=== PATIENT | female | born 1950 | race Caucasian/White ===

== ENCOUNTER 2018-12-07 08:12 | Outpatient (REF) | payer MEDICARE, OTHER, SELFPAY ==
[2018-12-07 12:34] LABS: ALT 19 U/L (12-78); AST 13 U/L (15-37); Albumin 4.1 g/dL (3.4-5.0); Alkaline Phosphatase 75 U/L (46-116); Anion Gap 8.8 mmol/L (3-11); BUN 28 mg/dL (7-18); Bilirubin, Total 0.4 mg/dL (0.2-1.0); CO2 29.2 mmol/L (21.0-32.0); CREATININE 1.16 mg/dL (0.55-1.02); Calcium 10.3 mg/dL (8.5-10.1); Chloride 101 mmol/L (98-107); Cholesterol 257 mg/dL (50-200); Estimated GFR 46.19 (mL/min/1.73m2); Glucose 88 mg/dL (70-100); HDL Cholesterol 74 mg/dL (40-60); LDL CHOLESTEROL 160 mg/dL (<100); Potassium 4.3 mmol/L (3.5-5.1); Sodium 139 mmol/L (136-145); Total Protein 7.2 g/dL (6.4-8.2); Triglyceride 88 mg/dL (30-150)
== END 2018-12-07 08:32 ==
LOC: NCHCN 08:12
PROVIDERS: PCP Nurse Practitioner; Visit Provider Nurse Practitioner
DX: E78.5 Hyperlipidemia, unspecified (principal); I10 Essential (primary) hypertension
CPT/HCPCS: 80053; 80061; 83721

== ENCOUNTER 2019-11-15 01:52 | Outpatient (CLI) | payer MEDICARE, OTHER, SELFPAY ==
--- NOTE | 2019-11-15 | DI.MAMMO_ITS ---
EXAM: MG MAMMO SCREENING CLINICAL HISTORY: SCREENING, Z12.39 TECHNIQUE: Bilateral full field digital CC and MLO mammographic images were obtained with 3D tomosyn thesis and utilizing computer aided detection (CAD). COMPARISON: Available for comparison. FINDINGS: Masses/Architectural Distortion: None seen. Microcalcifications: No suspicious pleomorphic-type are seen. Skin Thickening/Nipple Retraction: None. IMPRESSION: 1. No significant interval change with no specific features of malignancy noted. 2. Unless there is more urgent need, screening mammography is recommended, as per [employer] guidelines. BI-RADS Cat 1 - Negative Breast Density - Category D - Extremely dense The mammogram demonstrates the patient's breast tissue is dense. Dense breast tissue is very common a nd is not abnormal but dense breast tissue can make it harder to find cancer on a mammogram. Also, de nse breast tissue may increase their breast cancer risk. This information about the result of the [facility] mogram report was provided to the patient to raise their awareness. Use this report when you speak wi th the patient about their risks for breast cancer, which includes their family history. At that time , you may recommend for more screening tests (Ultrasound or MRI) as they might be useful based on the ir risk. A negative radiographic report should not delay biopsy if a dominant or clinically suspicious mass is present. Up to ten percent of cancers are not identified on mammography. A negative report may reinforce clinical impression. Adenosis and dense breasts may obscure an underlying neoplasm. False positive reports average 6 to 10%. Patient will receive a letter notifying them of these results.
== END 2019-11-15 02:12 ==
PROVIDERS: PCP Nurse Practitioner; Visit Provider Nurse Practitioner
DX: Z12.31 Encounter for screening mammogram for malignant neoplasm of breast (principal)
CPT/HCPCS: 77063; 77067

== ENCOUNTER 2020-02-28 08:32 | Outpatient (REF) | payer MEDICARE, OTHER, SELFPAY ==
[2020-02-28 18:56] LABS: ALT 21 U/L (14-59); AST 14 U/L (15-37); Albumin 4.2 g/dL (3.4-5.0); Alkaline Phosphatase 81 U/L (46-116); Anion Gap 10.3 mmol/L (3-11); BUN 24 mg/dL (7-18); Bilirubin, Total 0.2 mg/dL (0.2-1.0); CO2 25.7 mmol/L (21.0-32.0); CREATININE 1.16 mg/dL (0.55-1.02); Calculated LDL 82 mg/dL (<100); Chloride 101 mmol/L (98-107); Cholesterol 173 mg/dL (<200); Estimated GFR 46.05 (mL/min/1.73m2); Glucose 98 mg/dL (74-106); HDL Cholesterol 64 mg/dL (40-60); Potassium 4.6 mmol/L (3.5-5.1); Sodium 137 mmol/L (136-145); Triglyceride 135 mg/dL (<150)
[2020-02-28 19:14] LABS: ESR 19 mm/hr (0-30)
[2020-02-28 19:18] LABS: C-Reactive Protein 0.58 mg/dL (0.0-0.3); Creatine Kinase 60 U/L (26-192)
[2020-02-29 17:02] LABS: Rheumatoid Factor <8.6 IU/mL (<12.0)
[2020-03-01 15:24] LABS: ANA Interpretation Negative (Negative)
== END 2020-02-28 08:52 ==
LOC: NCHCN 08:32
PROVIDERS: PCP Nurse Practitioner; Visit Provider Nurse Practitioner
DX: I10 Essential (primary) hypertension (principal); M12.849 Other specific arthropathies, not elsewhere classified, unspecified hand; E78.5 Hyperlipidemia, unspecified
CPT/HCPCS: 80053; 80061; 82550; 85652; 86038; 86140; 86431

== ENCOUNTER 2020-04-11 02:06 | Outpatient (CLI) | payer MEDICARE, OTHER, SELFPAY ==
--- NOTE | 2020-04-11 10:10 | DI.RAD_ITS ---
EXAM: XR ARTHRITIS SERIES CLINICAL HISTORY: HAND DEFORMITY, PAIN,ARTHRITIS, M19.049,ELEVATED C REACTIVE PROTEIN,R79.82,. TECHNIQUE: 2D digital imaging was performed. COMPARISON: No exams were available for comparison FINDINGS: Erosive changes and proliferative changes are seen at the interphalangeal joints of both hands. Ther e is joint space narrowing seen in the interphalangeal joints and 2nd and 3rd metacarpophalangeal lauren nts. Mild spurring is seen at the 2nd and 3rd metacarpophalangeal joints. Mild hypertrophic changes are seen at the 1st CMC joints bilaterally. No soft tissue calcifications, lytic or sclerotic lesio ns are seen. IMPRESSION: Findings suggestive of erosive osteoarthritis. DATA REPOSITORY: RADIATION DOSE DELIVERED:
== END 2020-04-11 02:26 ==
PROVIDERS: PCP Nurse Practitioner; Visit Provider Nurse Practitioner Family
DX: M18.9 Osteoarthritis of first carpometacarpal joint, unspecified (principal); M77.8 Other enthesopathies, not elsewhere classified; M19.042 Primary osteoarthritis, left hand; M19.041 Primary osteoarthritis, right hand; R79.82 Elevated C-reactive protein (CRP)
CPT/HCPCS: 36415; 86200; 73120; 84550; 85025

== ENCOUNTER 2020-04-11 02:40 | Outpatient (CLI) | payer MEDICARE, OTHER, SELFPAY ==
[2020-04-11 10:43] LABS: Abs Immature Grans 0.06 10^3/uL (0.0-0.06); Absolute Basophil Count 0.06 10^3/uL (0.0-0.2); Absolute Eosinophil Count 0.35 10^3/uL (0.0-0.7); Absolute Lymphocyte Count 2.48 10^3/uL (1.2-3.4); Basophils % 0.5; Eosinophils % 2.7; HCT 39.6 % (36.0-46.0); HGB 12.4 g/dL (11.2-15.7); Immature Grans % 0.5; Lymphocytes % 19.2; MCH 30.8 pg (27.0-33.0); MCHC 31.3 % (32.0-36.0); MCV 98.3 fL (80-95); MPV 9.9 fL (8.0-11.0); Monocytes % 6.3; Neutrophils % 70.8; Nucleated RBC 0 %; Platelet Count 443 10^3/uL (130-400); RBC 4.03 10^6/uL (3.93-5.22); RDW 13.1 % (11.7-14.6); RDW-SD 47.4 fL; WBC 12.94 10^3/uL (4.4-10.8)
[2020-04-11 10:45] LABS: Absolute Monocyte Count 0.82 10^3/uL (0.1-0.8); Absolute Neutrophil Count 9.16 10^3/uL (1.2-6.7)
[2020-04-11 11:22] LABS: Uric Acid 5.2 mg/dL (2.6-6.0)
[2020-04-12 09:46] LABS: Cyclic Citrullinated Peptide <2.5 U/mL (<5.0)
== END 2020-04-11 03:00 ==
PROVIDERS: PCP Nurse Practitioner; Visit Provider Nurse Practitioner Family
DX: M19.041 Primary osteoarthritis, right hand (principal); M19.042 Primary osteoarthritis, left hand; R79.82 Elevated C-reactive protein (CRP)
CPT/HCPCS: 36415; 86200; 84550; 85025

== ENCOUNTER 2020-11-21 02:36 | Outpatient (CLI) | payer MEDICARE, SELFPAY ==
--- NOTE | 2020-11-21 07:35 | DI.MAMMO_ITS ---
EXAM: MAMMO SCREENING CLINICAL HISTORY: SCREENING, Z12.39. TECHNIQUE: Bilateral full field digital CC and MLO mammographic images were obtained with 3D tomosyn thesis and utilizing computer aided detection (CAD). COMPARISON: Prior mammograms dating back to 2010, the most recent being October 2019. FINDINGS: The fibroglandular tissue is again noted to be dense, this decreasing the sensitivity mammogram for f inding in underlying lesions. There are no new spiculated masses nor malignant appearing microcalcification groups. Benign-appearing microcalcification group medially in the left breast is unchanged. There is no significant architectural distortion nor skin thickening-retraction. IMPRESSION: Dense bilateral fibroglandular tissue. Stable benign findings. No obvious radiographic evidence of malignancy. BI-RADS Category 2 - Benign Findings Breast Density - Category D - Extremely dense Breast density Category C or D implies that the patient has dense breast tissue. Dense breast tissue can make it harder to find cancer on a mammogram. Dense breast tissue is also associated with an incr eased risk of breast cancer. This information about the result of the mammogram report was provided to the patient to raise their awareness. Use this report when you speak with the patient about their risks for breast cancer, which includes their family history. At that time, you may recommend additional screening tests (Ultrasoun d or MRI) as these tests may add significant information. A negative radiographic report should not delay biopsy if a dominant or clinically suspicious mass is present. Up to ten percent of cancers are not identified on mammography. A negative report may reinforce clinical impression. Adenosis and dense breasts may obscure an underlying neoplasm. False positive reports average 6 to 10%. Patient will receive a letter notifying them of these results.
== END 2020-11-21 02:56 ==
PROVIDERS: PCP Nurse Practitioner; Visit Provider Nurse Practitioner
DX: Z12.31 Encounter for screening mammogram for malignant neoplasm of breast (principal)
CPT/HCPCS: 77063; 77067

== ENCOUNTER 2021-06-28 00:45 | Outpatient (CLI) | payer MEDICARE, SELFPAY ==
--- NOTE | 2021-06-28 10:45 | DI.MRI_ITS ---
Exam(s) MR LUMBAR SPINE WO EXAM: MR LUMBAR SPINE WO CLINICAL HISTORY: LUMBAR BACK PAIN WITH RADICULOPATHY,M54.16. TECHNIQUE: Multiplanar multisequence MRI was performed. COMPARISON: No exams were available for comparison FINDINGS: MR examination of the lumbosacral spine was performed according to the usual protocol. No significant bony signal abnormality seen. There is a moderate left convex lumbar scoliosis. The SI joints are fairly well maintained. There are facet hypertrophic changes at multiple levels throughout the lumbar region. The conus medullaris appears intact. There is an apparent prominent disc bulge at the T10-T11 level seen on the sagittal images, no axial images were obtained at this level. No gross spinal stenosis o n the basis of the sagittal images. No significant findings at T11-T12 or T12-L1. No disc herniation, central canal spinal stenosis, or neural foraminal stenosis at these levels. At the L1-2 level, there is a slight retrolisthesis of L1 on L2. There is no evidence of a disc karina iation, central canal spinal stenosis, or neural foraminal stenosis at this level. At L 2 3, there is a prominent disc bulge. There is narrowing of the right lateral recess and right neural foramen. No central canal spinal stenosis. No disc herniation. At L3-4, there is a moderate disc bulge. There is narrowing of both lateral recesses. There is prob able mild bilateral neural foraminal narrowing. There is no significant central canal spinal stenosi s. At L4-5, there is a moderate disc bulge with question slight cysts superimposed central disc herniati on. There is mild narrowing of the spinal canal in the lateral dimension secondary to facet hypertro phy. There is no definite central canal spinal stenosis. There is mild bilateral neural foraminal s tenosis. At L5-S1, there is narrowing of the left lateral recess and narrowing of the left neural foramen. No central canal spinal stenosis or disc herniation. IMPRESSION: Multilevel degenerative changes as described above with marked facet hypertrophy at multiple levels. The neural foramina and lateral recesses of the spinal canal are narrowed at multiple levels. Pleas e see above discussion for findings at individual levels. DATA REPOSITORY:
== END 2021-06-28 01:05 ==
PROVIDERS: PCP Nurse Practitioner; Visit Provider Nurse Practitioner
DX: M43.16 Spondylolisthesis, lumbar region; M51.26 Other intervertebral disc displacement, lumbar region
CPT/HCPCS: 72148

== ENCOUNTER 2021-10-28 02:59 | Outpatient (CLI) | payer MEDICARE, SELFPAY ==
[2021-10-28 12:44] LABS: ALT 20 U/L (14-59); AST 17 U/L (15-37); Albumin 4.1 g/dL (3.4-5.0); Alkaline Phosphatase 84 U/L (46-116); Anion Gap 5.1 mmol/L (3-11); BUN 28 mg/dL (7-18); Bilirubin, Total 0.3 mg/dL (0.2-1.0); CO2 27.9 mmol/L (21.0-32.0); CREATININE 1.2 mg/dL (0.55-1.02); Calcium 10.3 mg/dL (8.5-10.1); Chloride 101 mmol/L (98-107); Estimated GFR 44.04 (mL/min/1.73m2); Glucose 73 mg/dL (74-106); Potassium 5.8 mmol/L (3.5-5.1); Sodium 134 mmol/L (136-145); Total Protein 6.9 g/dL (6.4-8.2)
== END 2021-10-28 03:00 | disposition home or self-care (01) ==
LOC: LBO 02:59
PROVIDERS: PCP Nurse Practitioner; Visit Provider Nurse Practitioner Family
DX: M54.16 Radiculopathy, lumbar region (principal); Z79.1 Long term (current) use of non-steroidal anti-inflammatories (NSAID)
CPT/HCPCS: 36415; 80053

== ENCOUNTER 2021-12-10 09:07 | Outpatient (REF) | payer MEDICARE, SELFPAY ==
[2021-12-10 16:48] LABS: HCT 39.8 % (36.0-46.0); HGB 12.1 g/dL (11.2-15.7); MCH 30.3 pg (27.0-33.0); MCHC 30.4 % (32.0-36.0); MCV 99.5 fL (80-95); MPV 10.6 fL (8.0-11.0); Platelet Count 446 10^3/uL (130-400); RDW 13.4 % (11.7-14.6); RDW-SD 49.1 fL; WBC 12.23 10^3/uL (4.4-10.8)
[2021-12-10 17:25] LABS: Anion Gap 8.9 mmol/L (3-11); BUN 25 mg/dL (7-18); CO2 25.1 mmol/L (21.0-32.0); CREATININE 1.1 mg/dL (0.55-1.02); Calcium 9.6 mg/dL (8.5-10.1); Calculated LDL 51 mg/dL (<100); Chloride 105 mmol/L (98-107); Cholesterol 153 mg/dL (<200); Estimated GFR 48.69 (mL/min/1.73m2); Glucose 104 mg/dL (74-106); HDL Cholesterol 80 mg/dL (40-60); Potassium 5.7 mmol/L (3.5-5.1); Sodium 139 mmol/L (136-145); Triglyceride 113 mg/dL (<150)
== END 2021-12-10 09:08 | disposition home or self-care (01) ==
LOC: NCHCN 09:07
PROVIDERS: PCP Nurse Practitioner Family; Visit Provider Nurse Practitioner Family
DX: I10 Essential (primary) hypertension (principal); E78.5 Hyperlipidemia, unspecified; R53.83 Other fatigue
CPT/HCPCS: 80048; 80061; 85027

== ENCOUNTER → 2021-12-11 01:59 | Outpatient (CLI) | payer MEDICARE, SELFPAY ==
--- NOTE | 2021-12-11 | DI.MAMMO_ITS ---
Exam(s) MAMMO SCREENING EXAM: MAMMO SCREENING CLINICAL HISTORY: SCREENING, Z12.39. TECHNIQUE: Bilateral full field digital CC and MLO mammographic images were obtained with 3D tomosyn thesis and utilizing computer aided detection (CAD). COMPARISON: 2012 through 2020 FINDINGS: Masses/Architectural Distortion: None seen. Microcalcifications: No suspicious pleomorphic-type are seen. Coarse, benign calcifications medial l eft breast. Vascular calcifications. Skin Thickening/Nipple Retraction: None. IMPRESSION: 1. No significant interval change with no specific features of malignancy noted. 2. Unless there is more urgent need, annual screening mammography is recommended, as per [employer] guidelines. BI-RADS Cat 2 - Benign Findings Breast Density - Category D - extremely dense Breast Density Category D: The mammogram demonstrates the patient's breast tissue is dense. Dense madiha ast tissue is very common and is not abnormal but dense breast tissue can make it harder to find canc er on a mammogram. Also, dense breast tissue may increase their breast cancer risk. This information about the result of the mammogram report was provided to the patient to raise their awareness. Use th is report when you speak with the patient about their risks for breast cancer, which includes their f amily history. At that time, you may recommend for more screening tests (Ultrasound or MRI) as they m ight be useful based on their risk. A negative radiographic report should not delay biopsy if a dominant or clinically suspicious mass is present. Up to ten percent of cancers are not identified on mammography. A negative report may reinforce clinical impression. Adenosis and dense breasts may obscure an underlying neoplasm. False positive reports average 6 to 10%.
== END ==
PROVIDERS: PCP Nurse Practitioner Family; Visit Provider Nurse Practitioner Family
DX: Z12.31 Encounter for screening mammogram for malignant neoplasm of breast (principal)
CPT/HCPCS: 77063; 77067

== ENCOUNTER 2022-02-24 03:36 | Outpatient (CLI) | payer MEDICARE, SELFPAY ==
[2022-02-24 13:44] LABS: Abs Immature Grans 0.03 10^3/uL (0.0-0.06); Absolute Basophil Count 0.07 10^3/uL (0.0-0.2); Absolute Eosinophil Count 0.41 10^3/uL (0.0-0.7); Absolute Lymphocyte Count 2.72 10^3/uL (1.2-3.4); Absolute Monocyte Count 1.13 10^3/uL (0.1-0.8); Absolute Neutrophil Count 5.67 10^3/uL (1.2-6.7); Basophils % 0.7; Eosinophils % 4.1; HCT 36.9 % (36.0-46.0); HGB 11.6 g/dL (11.2-15.7); Immature Grans % 0.3; Lymphocytes % 27.1; MCH 30.3 pg (27.0-33.0); MCHC 31.4 % (32.0-36.0); MCV 96 fL (80-95); MPV 9.5 fL (8.0-11.0); Monocytes % 11.3; Neutrophils % 56.5; Platelet Count 395 10^3/uL (130-400); RBC 3.83 10^6/uL (3.93-5.22); RDW 13.9 % (11.7-14.6); RDW-SD 49.2 fL; WBC 10.03 10^3/uL (4.4-10.8)
[2022-02-24 14:36] LABS: ALT 19 U/L (14-59); AST 16 U/L (15-37); Albumin 3.8 g/dL (3.4-5.0); Alkaline Phosphatase 79 U/L (46-116); Anion Gap 8.6 mmol/L (3-11); BUN 27 mg/dL (7-18); Bilirubin, Total 0.2 mg/dL (0.2-1.0); C-Reactive Protein 1.12 mg/dL (0.0-0.3); CO2 25.4 mmol/L (21.0-32.0); CREATININE 1.6 mg/dL (0.55-1.02); Calcium 9.4 mg/dL (8.5-10.1); Chloride 104 mmol/L (98-107); Glucose 134 mg/dL (74-106); Potassium 5.5 mmol/L (3.5-5.1); Sodium 138 mmol/L (136-145); Total Protein 6.9 g/dL (6.4-8.2)
== END 2022-02-24 03:37 | disposition home or self-care (01) ==
LOC: LBO 03:36
PROVIDERS: PCP Nurse Practitioner Family; Visit Provider Nurse Practitioner Family
DX: L40.9 Psoriasis, unspecified (principal); M15.4 Erosive (osteo)arthritis; Z79.899 Other long term (current) drug therapy
CPT/HCPCS: 36415; 80053; 85025; 86140

== ENCOUNTER 2022-03-17 02:30 | Outpatient (CLI) | payer MEDICARE, SELFPAY ==
--- OUTSIDE RECORDS SUMMARY | 2022-03-17 02:32 | XMS_ITS | Encounter Summary ---
:1950 Author Organization [facility] [place] [address] Care Team Providers Name Role Phone Crysatl Jones MD Primary Care Provider Reason for Referral Diagnostic Test (Routine) - Closed Specialty Diagnoses / Procedures Referred By Contact Refer red To Contact Radiology Diagnoses FHx: colon cancer Hillary Barroso [facility] Rad [facility] Scan Procedures CT Colonography DX, Incl Img Pst Process, wo Contrast [address] [id number] Referral ID Status Reason Start Date Expiration Date Visits V isits Requested Authorized [id number] Closed Specialty 09/08/2016 08/18/2017 1 1 Service Requested Reason for Visit Diagnostic Test (Routine) - Closed Specialty Diagnoses / Procedures Referred By Contact Refer red To Contact Radiology Diagnoses FHx: colon cancer Hillary Barroso [facility] Rad Ct Scan Procedures CT Colonography DX, Incl Img Pst Process, wo Contrast [address] [id number] Referral ID Status Reason Start Date Expiration Date Visits V isits Requested Authorized [id number] Closed Specialty 09/08/2016 08/18/2017 1 1 Service Requested Encounter Details Date Type Department Care Team Description 09/10/[address] Scan at [facility] Barroso, FHx: colon cancer [facility] [place] [phone] [address] [place] [address] Social History Tobacco Use Types Packs/Day Years Used Date Never Assessed Sex Assigned at Date Recorded Not on file documented as of this encounter Plan of Treatment Not on filedocumented as of this encounter Procedures Procedure Name Priority Date/Time Associated Diagnosis Comme nts CT COLONOGRAPHY, Routine 09/10/2016 2:35 PM FHx: colon cancer Results for this DX, INCL IMG PST EST procedure a re in PROCESS, WO the results CONTRAST section. documented in this encounter Results (ABNORMAL) CT Colonography DX, Incl Img Pst Process, wo Contrast (09/10/2016 2:35 PM EST) Anatomical Region Laterality Modality Pelvis, Abdomen Computed Tomography Specimen (Source) Anatomical Location Collection Method / Collectio n Time Received Time / Laterality Volume Impressions 09/10/2016 3:48 PM EST 1. C-Rads category CO: Inadequate study. Streak artifact from hip arthroplasties obscure much of the rectum and the entir e sigmoid colon. There is failure to distend multiple segments of the colon d ue to a patent ileocecal valve with free reflux of CO2 throughout the small bowel and retrograde into the stomach. -Inadequate prep: Cannot exclude lesions greater than or equal to 10 mm owing to presence -Inadequate insufflation: One or more co lonic segments collapsed in both views -Awaiting prior colon studies for compar rob 2. Unexpected finding of a 44 mm left ov eloy mass/enlargement. This should be further assessed with ultrasonography. Narrative 09/10/2016 3:48 PM EST EXAMINATION: CT COLONOGRAPHY DX, INCL IMG PST PROCESS, WO CONTRAST CLINICAL HISTORY: Family hx of colon CA, Failed colonoscopy (report attached) TECHNIQUE: Prior to the procedure the pa tient underwent a standard colon preparation with stool tagging. The bal ent was scanned supine and prone following insufflation of carbon dioxide per rectum. Images were reviewed in 2-D and 3-D mode. 3-D image processing with creation of 3-D virtual fly-through was performed on an independent workstation. Bowel preparation: Minor fecal residue Degree of colonic distention: Multiple s egments are not well distended on supine view. There is free reflux through the i leocecal valve, and the entire small bowel in the stomach become markedly dis tended following insufflation of CO2. This Limited ability to achieve good col onic distention. Overall distention is better on prone view. COMPARISON: None FINDINGS: This is a nondiagnostic study for much o f the colon. The entire sigmoid colon is not assessed due to extensive streak art ifact from hip arthroplasties. The portions of the sigmoid colon which are seen are not well distended. Innumerable sigmoid colonic diverticuli are noted. N o definite polyp is identified however the entire colon was not adequately eval uated on both prone and supine images. Incidental findings include: There is a 44 x 28 x 28 mm left ovarian enlargement/mass which measures soft tis bharath density. Please note, the examination was perform ed with low-dose technique which limits evaluation of the extracolonic abdomen a nd pelvis. Resulting Agency Comment Unexpected Finding Hillary Alberto MD IMG CT ORDERABLES documented in this encounter Visit Diagnoses Diagnosis FHx: colon cancer Family history of malignant neoplasm of gastrointestinal tract documented in this encounter Administered Medications Inactive Administered Medications - up to 3 most recent administrations Medication Order MAR Action Action Date Dose Rate Site glucagon (human recombinant) Given 09/10/2016 2:15 PM EST 1 mg Left Gluteal injection 1 mg 1 mg, Intramuscular, ONCE, On Thu09/10/16 at 1415, 1 dose documented in this encounter Care Teams Automatic [employer]k Screen Printer Relationship Specialty Start Date End Date Crystal Jones MD PCP - General Family Medicine 09/10/16 07/20/21 [address] [place] [address] documented as of this encounter
--- OUTSIDE RECORDS SUMMARY | 2022-03-17 02:32 | XMS_ITS | Encounter Summary ---
:1950 Author Organization [facility] Address [address] [place] [address] Care Team Providers Name Role Phone Nataliia Romo NP Primary Care Provider Reason for Visit Reason Comments Follow-up Things have been going well Encounter Details Date Type Department Care Team Description 04/23/2020 Office Visit [facility] - Bora Arauz is (Primary Dx); [facility] Rheumatology JUAN Saleh Erosive osteoarthritis of multiple sites ; [address] [facility] [place] [address] [address] [place] [id number] Social History Tobacco Use Types Packs/Day Years Used Date Never Smoker Smokeless Tobacco: Never Used Alcohol Use Standard Drinks/Week Comments Not Currently 0 (1 standard drink = 0.6 oz pure alcoho l) Sex Assigned at Date Recorded Not on file documented as of this encounter Last Filed Vital Signs Vital Sign Reading Time Taken Comments Blood Pressure 124/76 04/23/2020 1020 EDT Pulse - - Temperature - - Respiratory Rate - - Oxygen Saturation - - Inhaled Oxygen Concentration - - Weight 59 kg (130 lb) 04/23/2020 1020 EDT Height 160 cm (5' 3) 04/23/2020 1020 EDT Body Mass Index 23.03 04/23/2020 1020 EDT documented in this encounter Patient Instructions Patient InstructionsSyTherese coulter APRN - 04/23/2020 10:15 EDT Pick a day of the week and take methotrexate (4 pills) anytime that day. About 12-24 hours later, take 2 pills of the leucovorin After 4-5 doses, get labs drawn at [facility] We will plan a telemedicine or video follow up at 6 weeks from today documented in this encounter Ordered Prescriptions Prescription Sig Dispensed Refills Start Date End Date leucovorin (WELLCOVORIN) 5 Take 2 Tabs by 10 Tab 1 04/2304/29/2021 mg tabletIndications: mouth daily. Psoriasis, Erosive osteoarthritis of multiple sites methotrexate 2.5 mg Take 4 Tabs by 20 Tab 1 04/23/2020 0 04/29/2021 tabletIndications: mouth once a week. Psoriasis, Erosive osteoarthritis of multiple sites documented in this encounter Progress Notes Therese Arauz APRN - 04/23/2020 1015 EDT [facility] Rheumatology Chief Complaint Patient presents with ??? Follow-up Things have been going well HPI: 70 year old woman initially seen for evaluation on 03/30/20. Progressively worsening hand stiffness over the last 6 months or so. Has restricted motion and pain with activities. Denies any numbness or tingling. Occasional dropping items. Also has had onset of skin rashes on back sides of hands starting about a year ago. Seems worse in the winter. Saw Dr. Nugent in [place] with topical steroid cream applied. Also uses hand cream and Eucerin. Stiffness of hands is most predominant in the morning. Other symptoms include longstanding back pain and stiffness, again worse in the morning. History of left and right hip replacements by Dr. Garcia at [facility] as well as right shoulder rotator cuff repair by Dr. Garcia about a year ago. Notes that operative findings with some underlying G-H arthritis as well. Started taking CBD about 3 weeks ago and does feel it is helping with some easier motion of her fingers. ?? 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 ?? Family history includes her Dad with gout and an uncle with psoriasis. ?? Labs drawn at [facility] from 03/05/20:?? CYRIL and RF negative; ESR = 19; CRP = 0.58 (0 - 0.3); CK = 60; Cr = 1.16; GFR = 46 ?? INTERVAL HISTORY: Additional labs draw along with screening x-rays of hands, both done at [facility] on 04/11/20. X-rays pushed to our PACS system. Has noticed onset of bump over right index finger. Also reports worsening skin changes both hands. CCP negative; uric acid = 5.2; CBC with increase in platelets= 443, MCV = 98.3 and elevated WBC (patient reports history of elevated WBC over several years) Hand x-rays with erosive changes of DIP joints as well as PIP joints and narrowing MCP joints with mild periosteal fluffing of proximal phalanx Current Outpatient Medications Medication ??? cannabidiol, CBD, (CANNABIDIOL ORAL) ??? ibuprofen (MOTRIN) 200 mg tablet ??? lisinopriL (PRINIVIL) 10 mg tablet ??? loratadine (CLARITIN) 10 mg tablet ??? meclizine HCl (MECLIZINE ORAL) ??? rosuvastatin (CRESTOR) 10 mg tablet ??? triamterene-hydrochlorothiazide (DYAZIDE) 37.5-25 mg per capsule No current facility-administered medications for this visit. Allergies include: Codeine Past Medical History: Diagnosis Date ??? Degenerative joint disease (DJD) of lumbar spine ??? Hyperlipidemia ??? Hypertension Family History Problem Relation Age of Onset ??? Gout Father ??? Psoriasis Maternal Uncle Social History: Social History Tobacco Use ??? Smoking status: Never Smoker ??? Smokeless tobacco: Never Used Substance Use Topics ??? Alcohol use: Not Currently ??? Drug use: Not Currently [employer] Review of Systems: Review of Systems Constitutional: Positive for malaise/fatigue. Negative for chills and fever. Respiratory: Negative for cough and shortness of breath. Cardiovascular: Negative for chest pain. Gastrointestinal: Negative for nausea and vomiting. Musculoskeletal: Positive for joint pain. Skin: Positive for rash. Physical Examination: BP 124/76 (BP Cuff Sizes: Adult, regular) Ht 160 cm (63) Wt 59 kg (130 lb) BMI 23.03 kg/m?? EYES: Conjunctivae not injected ENT: Oral and nasal mucosa not examined. Protective mask in place secondary to COVID-19 precautions. NECK: Limited cervical spine extension as well as rotation to left and right approximately 30 degrees in either plane. CHEST: Clear to auscultation bilaterally. CARDIOVASCULAR: Regular rate and rhythm. No murmur. No peripheral edema. ABDOMEN: Soft, non tender. No hepatosplenomegaly. JOINT EXAM: No synovitis of the joints of the hands, wrists, or feet. Full painless ROM of shoulders, elbows, wrists, hips, knees and ankles. SKIN: Rash on dorsal aspect of both hands as well as small patch on upper arm right side. Mild plaque appearance overlying the left hand 4th and 5th fingers. No nail pitting. No dilated capillary loopsin the nail beds. MUSCULOSKELETAL EXAM: Left hand with hypertrophic PIP joints index and long finger. Right index finger with mucous cyst overlying DIP joint without drainage but with erythema. Positive crepitance with CMC shuck and grind but no pain. No tenderness over the ulnar fovea. No triggering of any digits. No nail changes. Exam of right hand again with hypertrophic DIP joints along with PIP joints primarily index and long. No appreciable synovitis overlying the CMC MCP joints. Some ulnar prominence. CMC shuck and grind with some crepitus but no pain. Negative Dima's carpal compression. Good strength of the first dorsal interossei to manual muscle testing of left and right. No nail changes. Right knee with some mild fullness but without erythema or warmth. No lower extremity pitting edema.Bilateral feet with hallux valgus on the right with some rotational deformity. Less so on the left. No appreciable dactylitis. No skin or nail changes. Nontender Achilles and calcaneus. Labs: Lab Requisition on 04/11/2020 Component Date Value ? ? CCP Antibodies 04/11/2020 <2.5 Lab Requisition on 02/28/2020 Component Date Value ??? CYRIL Interpretation 02/28/2020 Negative ? ? Rheumatoid Factor 02/28/2020 <8.6 ??? Hold 02/28/2020 Hold Diagnosis / Assessment: Problem List Items Addressed This Visit None Visit Diagnoses Psoriasis - Primary Relevant Medications methotrexate 2.5 mg tablet leucovorin (WELLCOVORIN) 5 mg tablet Erosive osteoarthritis of multiple sites Relevant Medications methotrexate 2.5 mg tablet leucovorin (WELLCOVORIN) 5 mg tablet High risk medication use Relevant Orders C REACTIVE PROTEIN COMPREHENSIVE METABOLIC PANEL (CMP) COMPLETE BLOOD COUNT AND DIFFERENTIAL Erosive findings on x-ray of hands in setting of psoriasis with high likelihood of psoriatic arthritis. Recommendations/Evaluation: Recommend initiation of a DMARD for high suspicion of psoriatic arthritis with erosive changes on x-ray. Time spent reviewing risks and potential benefits. Patient amenable to initiation of methotrexate weekly along with leucovorin for symptom management. Follow up with monitoring labs prior in 6 weeks. Therese Arauz APRN 04/23/2020 10:25 documented in this encounter Plan of Treatment Upcoming Encounters Date Type Specialty Care Team Description 04/07/2022 Telemedicine Rheumatology Good Arauz APRN [address] [facility] [address] [place] [phone] documented as of this encounter Visit Diagnoses Diagnosis Psoriasis - Primary Other psoriasis Erosive osteoarthritis of multiple sites Osteoarthrosis involving, or with mentio n of more than one site, but not specified as generalized, multiple sites High risk medication use Encounter for long-term (current) use of other medications documented in this encounter Care Teams Softwood Faller Relationship Specialty Start Date End Date Nataliia Romo, REID PCP - General 03/08/20 [address] [place] [address] documented as of this encounter
--- OUTSIDE RECORDS SUMMARY | 2022-03-17 02:32 | XMS_ITS | Encounter Summary ---
:1950 Author Organization [facility] [place] [address] Care Team Providers Name Role Phone Nataliia Romo APRN Primary Care Provider Encounter Details Date Type Department Care Team Description 09/12/2021 Telephone Pain and Spine Cent[facility] [place]ienna [place]jo, [place] [address] Social History Tobacco Use Types Packs/Day Years Used Date Never Assessed Sex Assigned at Date Recorded Not on file documented as of this encounter Miscellaneous Notes Telephone Encounter - Sienna Cornejo, RN - 09/12/2021 8:36 AM EST Pt called into the food service team member line to state that her pain is getting better and is asking if she should still come for her injection tomorrow. Pt states that she is taking Tylenol matybe once a day, not more and rates her pain at maybe a 1 at best. Pt was advised that she should cancel her procedure and reschedule if the pain returns and pt was given the phone number for the schedulers if needed. documented in this encounter Plan of Treatment Not on filedocumented as of this encounter Visit Diagnoses Not on filedocumented in this encounter Care Teams Processing Lead Relationship Specialty Start Date End Date Nataliia Romo APRN PCP - General Family Medicine 07/21/21 [place] [address] documented as of this encounter
--- OUTSIDE RECORDS SUMMARY | 2022-03-17 02:32 | XMS_ITS | Encounter Summary ---
:1950 Author Organization [facility] [place] [address] Care Team Providers Name Role Phone Crystal Jones MD Primary Care Provider Encounter Details Date Type Department Care Team Description 06/28/2021 Ancillary Procedure [facility] [address] [place] [id number] (Wo rk) Social History Tobacco Use Types Packs/Day Years Used Date Never Assessed Sex Assigned at Date Recorded Not on file documented as of this encounter Plan of Treatment Not on filedocumented as of this encounter Procedures Procedure Name Priority Date/Time Associated Diagnosis Comme nts FILM LIBRARY Routine 06/28/2021 12:00 AM Results for this STORAGE ONLY MR EDT procedure ar e in SPINE the results section. documented in this encounter Results Film Library- Storage Only MR Spine (06/28/2021 12:00 AM EDT) Specimen (Source) Anatomical Location Collection Method / Collectio n Time Received Time / Laterality Volume Narrative [facility] - 09/05/2021 4:49 PM EST This exam is auto-finalizing. It's purpo se is for storage only. Nataliia Romo CONSTRUCTION [facility] FILM LIBRARY ORDERABLES Performing Organization Address City/State/ZIP Code Phon e Number [place], [place] documented in this encounter Visit Diagnoses Not on filedocumented in this encounter Care Teams Billing Spec Relationship Specialty Start Date End Date Crystal Jones MD PCP - General Family Medicine 09/10/16 07/20/21 [address] [place] [address] documented as of this encounter
--- OUTSIDE RECORDS SUMMARY | 2022-03-17 02:32 | XMS_ITS | Encounter Summary ---
:1950 Author Organization [facility] Address [address] [place] [address] Care Team Providers Name Role Phone Demetrius Nataliia MATHEWS Primary Care Provider Reason for Visit Reason Comments Follow-up PSA. pt states feeling okay ith meloxicam is doing good. had trouble with lower back for 6 weeks, was going toget injection but it got better. 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 of non-steroidal anti-inflammatories (nsaid) [address] [place] [address] [address] [place] [address] Social History Tobacco Use Types Packs/Day Years Used Date Never Smoker Smokeless Tobacco: Never Used Alcohol Use Standard Drinks/Week Comments Not Currently 0 (1 standard drink = 0.6 oz pure alcoho l) Sex Assigned at Date Recorded Not on file documented as of this encounter Last Filed Vital Signs Vital Sign Reading Time Taken Comments Blood Pressure - - Pulse - - Temperature - - Respiratory Rate - - Oxygen Saturation - - Inhaled Oxygen Concentration - - Weight 62.6 kg (138 lb) 10/25/2021 1144 EST Height 160 cm (5' 3) 10/25/2021 1144 EST Body Mass Index 24.45 10/25/2021 1144 EST documented in this encounter Patient Instructions Patient InstructionsTherese Arauz APRN - 10/28/2021 8:15 EST Get documented in this encounter Progress Notes Therese Arauz APRN - 10/28/2021 0815 EST [facility] Telephone Visit Today's visit was provided via telephone audio only. The location of the patient: Home The location of the provider: Office Verbal consent: The concept of ???Telemedicine?? has been described to the patient. Patient has been informed of the anticipated benefits and possible risks. Patient understands the information provided regarding telemedicine, has had the opportunity to ask questions about this information, and all questions have been answered to patient???s satisfaction. Patient consents for the use of telemedicine in his/her medical care and authorizes the transmission of any relevant medical information to providers and their staff involved in patient???s medical or mental health care. Verbal consent obtained by myself or auxiliary staff: yes. I have determined that an audio-only visit is appropriate due to: Patient request due to travel and safety concerns Subjective: Chief Complaint(s): Follow-up (PSA. pt states feeling okay ith meloxicam is doing good. had trouble with lower back for 6 weeks, was going toget injection but it got better.) Rheumatology history: ?? Erosive hand arthritis CYRIL, RF and CCP negative Mildly elevated CRP in past Skin psoriasis Left and right hip replacements (Dr. Jose Randolph) Right shoulder RTC repair (Dr. Radha Randolph) HPI: Initial evaluation on 03/30/2020. Hand x-rays with erosive changes of DIP joints and PIP joints with some mild periosteal fluffing INTERVAL HISTORY:?? Last visit on 07/30/2021 States she is doing well with meloxicam twice daily. 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 Nothing worse than it has always been. Hand pain is manageable. Back pain and left leg radiculopathy was evaluated at [facility]. Had an injection scheduled but canceled that secondary to waning of symptoms. After canceling that appointment, she does note recently some worsening of those symptoms of her back with left leg radiation. Completed physical therapy. Did pool therapy and felt better in the pool but no lasting benefit after those appointments. Covid positive in early July. Continues to have some residual symptoms of altered taste and smell. Skin symptoms are the same Holding off on methotrexate initiation I have reviewed patient's tobacco history: reports that she has never smoked. She has never used smokeless tobacco. I have reviewed current problem list and current medications. ROS: Review of Systems Constitutional: Positive for malaise/fatigue. Eyes: Negative for pain and redness. Respiratory: Negative for cough and shortness of breath. Cardiovascular: Negative for chest pain. Gastrointestinal: Positive for heartburn. Negative for nausea and vomiting. Musculoskeletal: Positive for back pain and joint pain. Negative for falls. Skin: Negative for rash. Objective: Examination: Home Vitals: Ht 160 cm (63) Wt 62.6 kg (138 lb) BMI 24.45 kg/m?? Pertinent exam findings: speaking in full sentences, no audible wheeze and mood and affect appropriate Data reviewed with patient: Reviewed and/or ordered active problem list, medication list, allergies,family history, social history, notes from last encounter, imaging tests Assessment & Plan: 1. Erosive (osteo)arthritis Possible psoriatic arthritis with hand pain manageable with meloxicam and Tylenol daily. Follow-up with [facility] spine and pain clinic for consideration of targeted injection for her back pain with left leg radiating symptoms. 2. half-way (current) use of non-steroidal anti-inflammatories (nsaid) She plans on getting lab work performed today at [facility]. Had forgotten and will recheck renal function as well as metabolic panel for long-term current NSAID use. Follow-up for in person visit in 4 months for reevaluation. She was instructed to call the office with any questions or concerns prior to that visit. Patient initiated phone contact with the office: yes. Patient is an established patient (parent, guardian) yes. E/M provided within previous 7 days for same medical assessment: no Anticipate E/M service within 24hrs or next available urgent appointment no. This visit was conducted by telephone. A total of 23 minutes was spent on this encounter on the day of this encounter. documented in this encounter Plan of Treatment Upcoming Encounters Date Type Specialty Care Team Description 04/07/2022 Telemedicine Rheumatology Good Aruaz APRN [address] [facility] [address] [place], [place] [address] documented as of this encounter Visit Diagnoses Diagnosis Erosive (osteo)arthritis - Primary half-way (current) use of non-steroidal anti-inflammatories (nsaid) documented in this encounter Care Teams Barrel Assembler Relationship Specialty Start Date End Date Nataliia Romo, REID PCP - General 03/08/20 [address] [facility] [place] [id number] documented as of this encounter
--- OUTSIDE RECORDS SUMMARY | 2022-03-17 02:32 | XMS_ITS | Encounter Summary ---
:1950 Author Organization [facility] Address [address] [place] [address] Care Team Providers Name Role Phone Nataliia Romo NP Primary Care Provider Reason for Referral Laboratory Services (Routine/Next Available) - New Request Specialty Diagnoses / Procedures Referred By Contact Refer red To Contact Diagnoses Elevated C-reactive protein (CRP) Therese Arauz APRN Procedures C REACTIVE PROTEIN [address] [place] [address] Referral ID Status Reason Start Date Expiration Date Visits V isits Requested Authorized [id number] New Request 02/26/2022 1 1 aboratory Services (Routine/Next Available) - New Request Specialty Diagnoses / Procedures Referred By Contact Refer red To Contact Diagnoses Elevated serum creatinine Therese Arauz APRN Procedures BASIC METABOLIC PANEL (BMP) [address] [place] [address] Referral ID Status Reason Start Date Expiration Date Visits V isits Requested Authorized [id number] New Request 02/26/2022 1 1 Reason for Visit Reason Comments Follow-up the Pt.states doing very wel l and has no question or concern. 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-steroidal anti-inflammatories (nsaid) [phone] [place] [address] Social History Tobacco Use Types Packs/Day Years Used Date Never Smoker Smokeless Tobacco: Never Used Alcohol Use Standard Drinks/Week Comments Not Currently 0 (1 standard drink = 0.6 oz pure alcoho l) Sex Assigned at Date Recorded Not on file documented as of this encounter Last Filed Vital Signs Vital Sign Reading Time Taken Comments Blood Pressure 140/72 02/26/2022 08 EDT Pulse 84 02/26/2022 08 EDT Temperature 36.2 ??C (97.2 ??F) 02/26/2022 08 EDT Respiratory Rate - - Oxygen Saturation - - Inhaled Oxygen Concentration - - Weight 62.6 kg (138 lb) 02/26/2022 08 EDT Height 160 cm (5' 3) 02/26/2022 0805 EDT Body Mass Index 24.45 02/26/2022 0805 EDT documented in this encounter Functional Status Functional Status Response Date of Assessment Because of a physical, mental, or emotional condition, No 02/26/2022 does this person have difficulty doing errands alone such as visiting a doctor's office or shopping? Cognitive Status Response Date of Assessment Because of a physical, mental, or emotional condition, No 02/26/2022 does this person have serious difficulty concentrating, remembering, or making decisions? documented as of this encounter Patient Instructions Patient InstructionsSyTherese coulter APRN - 02/26/2022 8:15 EDT Stop taking meloxicam OK to take Tylenol (acetaminophen) up to 3000mg in a 24 hours period Get repeat blood work done in 1 month (check metabolic panel and CRP) documented in this encounter Ordered Prescriptions Prescription Sig Dispensed Refills Start Date End Date predniSONE (DELTASONE) 5 Take 3 Tablets by 18 Tablet 0 01/3003/07/2022 mg tabletIndications: mouth daily for 3 Elevated C-reactive days, THEN 2 Tablets protein (CRP) daily for 3 days, THEN 1 Tablet daily for 3 days. documented in this encounter Progress Notes Therese ArauzJUAN - 02/26/2022 0815 EDT [facility] Rheumatology Chief Complaint Patient presents with ??? Follow-up the Pt.states doing very well and has no question or concern. Rheumatology history: ? Erosive hand arthritis CYRIL, RF and CCP negative Mildly elevated CRP in past Skin psoriasis Left and right hip replacements (Dr. Jose Randolph) Right shoulder RTC repair (Dr. Radha Randolph) HPI: Initial evaluation on 03/30/2020. Hand x-rays with erosive changes of DIP joints and PIP joints with some mild periosteal fluffing coupled with history of psoriasis with probable psoriatic arthritis INTERVAL HISTORY: Last visit on 10/28/2021 via telemedicine Since that time, continues to take meloxicam daily. Also has ongoing skin symptoms both hands of dryness and itching. Ongoing aching of hands but still able to knit and do all of activities History of COVID-positive in July with persistent loss of smell and taste. Significant increase in stressors as her has upcoming back surgery at [facility] and herex (father of her 2 adult children) has brain cancer and prognosis is bleak Labs were done 02/24/22 at [facility] and available for review Include CBC, CMP and CRP Noted positive results include elevated CRP = 1.12 (0-0.3); increase in creatinine = 1.6 with GFR = 31.6 as well as some increase in serum potassium = 5.5 CBC without concerning values Current Outpatient Medications Medication ??? cetirizine (ZYRTEC) 10 mg tablet ??? gabapentin (NEURONTIN) 100 mg capsule ??? ibuprofen (MOTRIN) 200 mg tablet ??? leucovorin (WELLCOVORIN) 5 mg tablet ??? lisinopriL (PRINIVIL) 10 mg tablet ??? loratadine (CLARITIN) 10 mg tablet ??? meclizine HCl (MECLIZINE ORAL) ??? meloxicam (MOBIC) 7.5 mg tablet ??? methotrexate 2.5 mg tablet ??? rosuvastatin (CRESTOR) 10 mg tablet ??? [...] Not Currently ??? Drug use: Not Currently Review of Systems: Review of Systems Constitutional: Positive for malaise/fatigue. Eyes: Negative for redness. Respiratory: Negative for cough and shortness of breath. Cardiovascular: Negative for chest pain and palpitations. Gastrointestinal: Negative for nausea. Musculoskeletal: Positive for joint pain. Skin: Negative for rash. Physical Examination: BP 140/72 (BP Cuff Location: Right arm, BP Cuff Sizes: Adult, regular) Pulse 84 Temp 36.2 ??C (97.2 ??F) Ht 160 cm (63) Wt 62.6 kg (138 lb) BMI 24.45 kg/m?? EYES: Conjunctivae not injected ENT:??Oral and nasal mucosa not examined. ??Protective mask in place secondary to COVID-19 precautions. NECK:??Limited cervical spine extension as well as rotation to left and right approximately 30 degrees in either plane. CHEST: Clear to auscultation bilaterally. CARDIOVASCULAR: Regular rate and rhythm. No murmur. No peripheral edema. SKIN:??Rash on dorsal aspect of both hands as well as small patch on upper arm right side.??Mild plaque appearance overlying the left hand 4th and 5th fingers.??Plaques posterior elbows. No nail pitting. MUSCULOSKELETAL EXAM:??Left hand with hypertrophic PIP joints index and long finger.?Right index finger with mucous cyst overlying??DIP joint??without drainage but with erythema.?Positive crepitance with CMC shuck and grind but no pain. ??No tenderness over the ulnar fovea. ??No triggering of any digits. ??No nail changes. ??Exam of right hand again with hypertrophic DIP joints along with PIP joints primarily index and long. ??No appreciable synovitis overlying the CMC MCP joints. ??Some ulnarprominence. ??CMC shuck and grind with some crepitus but no pain. ??Negative Dima's carpal compression Labs: No visits with results within 3 Month(s) from this visit. Latest known visit with results is: Abstract on 10/29/2021 Component Date Value ??? GFR, Calculated, External 10/28/2021 44.04 (A) ??? Glucose, Serum, External 10/28/2021 73 (A) ??? Albumin, External 10/28/2021 4.1 ??? Total Alkaline Phosphata* 10/28/2021 84 ??? ALT, External 10/28/2021 20 ??? AST, External 10/28/2021 17 ??? BUN, External 10/28/2021 28 (A) ??? Calcium, External 10/28/2021 10.3 (A) ??? Chloride, External 10/28/2021 101 ??? CO2, External 10/28/2021 27.9 ??? Creatinine, External 10/28/2021 1.2 (A) ??? Potassium, External 10/28/2021 5.8 (A) ??? Sodium, External 10/28/2021 134 (A) ??? Total Protein, External 10/28/2021 6.9 ??? 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 non-steroidal anti-inflammatories (nsaid) Working diagnosis of psoriatic arthritis Worsening kidney function with chronic NSAID use Recommendations/Evaluation: Recommend discontinuation of meloxicam Okay to take acetaminophen up to 3000 mg daily Repeat labs in 4 weeks to verify normalization of serum creatinine Ongoing mildly elevated CRP but without evidence of synovitis or tenosynovitis on exam today As needed prednisone taper prescribed in case hand swelling worsens with cessation of NSAID Follow-up via telemedicine in approximately 5 weeks for reevaluation Therese Arauz, JUAN 02/26/2022 8:16 documented in this encounter Plan of Treatment Upcoming Encounters Date Type Specialty Care Team Description 04/07/2022 Telemedicine Rheumatology Good Arauz, 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 [address] [facility] [address] [place], [place] [phone] Scheduled Orders Name Type Priority Associated Diagnoses Order S chedule BASIC METABOLIC PANEL Lab Routine Elevated serum crea tinine Expected: 03/12/2022 (BMP) (Approximate), Expires: 2021 C REACTIVE PROTEIN Lab Routine Elevated C-reactive Ex pected: 03/12/2022 protein (CRP) (Approximate), Expires: 2021 documented as of this encounter Visit Diagnoses Diagnosis Elevated serum creatinine - Primary Other nonspecific findings on examinatio n of blood Erosive (osteo)arthritis Elevated C-reactive protein (CRP) jail (current) use of non-steroidal anti-inflammatories (nsaid) documented in this encounter Care Teams Plastic Sheets Finishing Supervisor Relationship Specialty Start Date End Date Nataliia Romo NP PCP - General 03/08/20 [address] [place] [address] documented as of this encounter
--- OUTSIDE RECORDS SUMMARY | 2022-03-17 02:32 | XMS_ITS | Clinical Summary ---
:1950 Author Organization [facility] [place] [address] Care Team Providers Name Role Phone Demetrius Nataliia MARTINEZ Primary Care Provider Allergies Active Allergy Reactions Severity Noted Date Comments Codeine Nausea And Vomiting 03/30/2020 Medications Medication Sig Dispensed Refills Start Date End Date Status gabapentin (Neurontin) Take 200 mg by 0 Active 100 mg Capsule mouth nightly. lisinopriL (Zestril) 10 Take 10 mg by 0 Active mg Tablet mouth Daily. loratadine (Claritin) Take 10 mg by 0 Active 10 mg Tablet mouth Daily. meloxicam (MOBIC) 7.5 Take 7.5 mg by 0 07/30/2021 Active mg Tablet mouth Twice daily. triamterene-hydroCHLORO Take 1 capsule by 0 Active thiazide (Dyazide) mouth daily. 37.5-25 mg Capsule rosuvastatin (Crestor) Take 10 mg by 0 Active 10 mg Tablet mouth nightly. acetaminophen (Tylenol) Take 1,000 mg by 0 Active 500 mg Tablet mouth every 6 hours as needed for Pain. lidocaine (Lidoderm) 5% Change on the 0 Active Adhesive Patch, skin nightly. Medicated Apply 1 patch onto the skin daily. (leave on for 12 hours and remove for 12 hours) multivitamin Take 1 tablet by 0 Active (THERAGRAN) Tablet mouth daily. Active Problems Problem Noted Date Erosive (osteo)arthritis 09/06/2021 Primary hypertension 09/06/2021 Other hyperlipidemia 09/06/2021 Radiculopathy of lumbar region 09/06/2021 Idiopathic scoliosis of lumbar spine 09/06/2021 Lumbar spondylosis 09/06/2021 Social History Tobacco Use Types Packs/Day Years Used Date Never Assessed Sex Assigned at Date Recorded Not on file Last Filed Vital Signs Vital Sign Reading Time Taken Comments Blood Pressure 149/62 09/06/2021 9:49 AM EST Pulse 93 09/06/2021 9:49 AM EST Temperature - - Respiratory Rate - - Oxygen Saturation 99% 09/06/2021 9:49 AM EST Inhaled Oxygen Concentration - - Weight 62.6 kg (138 lb) 09/06/2021 9:49 AM EST Height - - Body Mass Index - - Plan of Treatment Health Maintenance Due Date Last Done Comments Covid-19 Vaccine (#1) 1953 Hepatitis C Screening 1966 Tdap adult 1967 Tetanus vaccine 1967 Breast Cancer Share Decision Needed 1988 Colonoscopy 1993 Breast Cancer screening 1998 Zoster vaccine (1 of 2) 1998 Advance Directive 2003 Bone Density Scan 2013 Pneumoccocal Vaccine: 65+ (1 - PCV) 2013 Influenza (Flu) vaccine (1 of 1 - Influenza standard 05/01/2022 series) Insurance Payer Benefit Plan / Subscriber ID Effective Dates Phone Addre ss Type Group MEDICARE MEDICARE PART [id number] 2013-[place]en [phone] [place] [address] [employer] [id number] 2013-[employer]en [address] [address] [place] [address] Care Teams Rocket Test Fire Worker Relationship Specialty Start Date End Date Nataliia Romo APRN PCP - General Family Medicine 07/21/21 [address] [place] [id number]
--- OUTSIDE RECORDS SUMMARY | 2022-03-17 02:32 | XMS_ITS | Encounter Summary ---
:1950 Author Organization [facility] [place] [address] Care Team Providers Name Role Phone Nataliia Romo APRN Primary Care Provider Reason for Visit Reason Comments Back Pain new patient / team Consultation (Routine) - Closed Specialty Diagnoses / Procedures Referred By Contact Refer red To Contact Pain and Spine Center Diagnoses Radiculopathy, lumbar region Spine- Lumbar Radiculopathy/ disc bulges/ MRI 06/28/21 @ [facility]/ doing PT Nataliia Romo, [facility] [address] [place], [place] [id number] [place] [phone] Phone: Fax: Referral ID Status Reason Start Date Expiration Date Visits V isits Requested Authorized [id number] Closed Consult, Test 07/10/2021 01/07/2022 [facility] PCP Updated and/or Approved Encounter Details Date Type Department Care Team Description 09/06/2021 Office Visit Pain and Spine Manjula Ortega MD [facility] [place] [address] Radiculopathy of lumbar Center at [facility] Day Peralta APRN [facility] [address] [address] [place] [phone] Social History Tobacco Use Types Packs/Day Years [...] - - Body Mass Index - - documented in this encounter Patient Instructions Patient InstructionsCrDay navarro APRN - 09/06/2021 10:00 AM EST Lumbar Epidural Steroid Injection Continue home exercises per physical therapy with the exception of bridge Continue medications per rheumatology and PCP Follow-up 4 weeks after procedure documented in this encounter Progress Notes Karyna Ortega MD - 09/06/2021 10:00 AM EST This patient was seen in conjunction with Ms. Day Peralta APRN as part of a shared visit. 71 y.o. female past medical history of hypertension, hyperlipidemia, erosive OA, urinary incontinence presenting with Lower back and left leg pain. I have seen and examined Phoebe Hackett Prior Medical records, scanned documents, prior imaging studies and tests were reviewed in detail with Phoebe Hackett. Pain localized to lower back and lateral left calf. No significant weakness or numbness on history or my exam today. She has undergone PT with some improvement but pain overall remains poorly controlled. Has trailed Gabapentin 200 QHS but leads to sedation/unsteadiness and therefore unable to tolerateduring the day. I have reviewed imaging studies in person with Phoebe Hackett MRI images personally No significant central stenosis. L2-3 disc bulge leading to right lateral recess stenosis, L3-4 disc bulge with bilateral lateral recess stenosis, L5-S1 left neuro foraminal and lateral recess stenosis consistent with the patients symptoms. Multilevel facet arthropathy. Notes from referring provider Nataliia Romo APRN [address] [place] [address] were not available for review. Assessment and plan discussed with Phoebe Hackett 1. Radiculopathy of lumbar region Plan/ Recommendations: We reviewed etiology, predisposing factor(s), natural course, imaging results as well as treatment options including medications, physical therapy/exercise, therapeutic injections, and surgery. The risks, consequences, alternatives, and benefits of various treatment options were discussed with the patient in great detail, including conservative management, injections and procedures. - Medications: Patient will continue current meds. - Imaging: None indicated at this time. - Physical therapy/modalities/DME: Continue HEP - Interventional/Surgical procedures: Left L5-S1 Interlaminar ANÍBAL The procedure, risks and benefits were reviewed, including infection, bleeding, nerve damage, headache, and increased pain. @NAME@ expressed understanding and is willing to proceed. Decisions regarding concurrent use of medications, anticoagulants, steroids, antibiotics are listed below: JUSTIFICATION OF MEDICAL NECESSITY Patient's pain has been present for >6 weeks and is an average of >6/10 on 0-10 scale and/or pain interferes with ADLs. Conservative management includes: Physical Therapy - Completed 6 week course in the last 6 months ( land and pool- based), NSAIDS, Gabapentin - Referrals: None indicated at this time. - Activity: Continue activity as tolerated. - Follow-up: 2-4 weeks with Day Peralta APRN, [facility] Karyna Ortega MD Day Leonard APRN - 09/06/2021 10:00 AM EST Images from the original note were not included. [facility] Date of Consultation: September 06, 2021 Referring Provider: Nataliia Romo Reason for request of consultation: Radiculopathy, lumbar region Chief Complaint: Chief Complaint Patient presents with ??? Back Pain Left leg pain Patient is schedule for a shared visit with Day Peralta APRN and Dr. Ortega. History of Present Illness: Ms. Hackett is a 71 y.o. year-old female who presents to the pain clinic for back pain and left lowerextremity pain; past medical history of hypertension, hyperlipidemia, erosive OA, s/p bilateral hip replacements, stress urinary incontinence s/p vaginal hysterectomy and bladder sx, COVID infection Jul 2021, Lower back and left leg pain. Follows with rheumatology in [place], [place], for OA and history of psoriatic arthritis. Taking meloxicam which has been helping. Has had back pain for about the past 6 months and also was having pain that refers to her left hip. Worsened in May 2021 and had pain that was in her left leg and left lateral thigh. She was her PCP for this issue and was referred to physical therapy. Started physical therapy in July 2021 and completed some session but then had a break in physical therapy due to COVID diagnosis. She then returned to physical therapy and had additional session in the pool. Enjoyed the aqua therapy and felt good when she was in the pool. Continues to have moderate to severe pain in left back and left leg that is interfering with her activities and sleep. Gabapentin helping somewhat with pain at night but makes too tired to take during the day. PAIN ASSESSMENT: Onset: Gradual Description/Location: Back pain- Sharp, shooting Left leg- shooting aching mostly in the left lateral lower leg Weakness, numbness, tingling: numbness in toes 1-4 intermittent, no other lower extremity weakness or numbness Saddle Anesthesia: No Other associated symptoms: denies new bowl or bladder incontinence Alleviating factors: lidocaine, tylenol and asper cream all help somesome benefit with physical therapy Aggravating factors: all activities- standing, walking, prolonged sitting Pain today: 6/10 Best in past week: 1/10 when getting out of bed in the morning Worst in past week: 8/10 No flowsheet data found. PAST THERAPIES: Acetaminophen: 1,00 mg twice a day- some benefit NSAID: meloxicam for OA - on this medication prior Antidepressants: not for this issue Anticonvulsants: gabapentin 200 mg at bedtime- helping with pain at night Does feel unsteady after taking this Muscle relaxants: No Topicals: yes - using 5% lidocaine to left lower leg - some benefit Using Asper cream to low back as needed Herbal supplements/vitamins: No Injections: No previous lumbar injections Surgery: No previous lumbar surgeries Physical Therapy: Yes Continueing with some of home exerises TENS:No Acupuncture:No Chiropractic:No Massage:No Other: 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 gabapentin (Neurontin) 100 mg Capsule Take 200 mg by mouth nightly. ??? lisinopriL (Zestril) 10 mg Tablet Take 10 mg by mouth Daily. ??? loratadine (Claritin) 10 mg Tablet Take 10 mg by mouth Daily. ??? meloxicam (MOBIC) 7.5 mg Tablet Take 7.5 mg by mouth Twice daily. ??? triamterene-hydroCHLOROthiazide (Dyazide) 37.5-25 mg Capsule Take 1 capsule by mouth daily. ??? rosuvastatin (Crestor) 10 mg Tablet Take 10 mg by mouth nightly. ??? acetaminophen (Tylenol) 500 mg Tablet Take 1,000 mg by mouth every 6 hours as needed for Pain. ??? lidocaine (Lidoderm) 5% Adhesive Patch, Medicated Change on the skin nightly. Apply 1 patch ontothe skin daily. (leave on for 12 hours and remove for 12 hours) ??? multivitamin (THERAGRAN) Tablet Take 1 tablet by mouth daily. Allergies & Adverse Reactions: Codeine Problem List: Patient Active Problem List Diagnosis Date Noted ??? Erosive (osteo)arthritis 09/06/2021 ??? Primary hypertension 09/06/2021 ??? Other hyperlipidemia 09/06/2021 ??? Radiculopathy of lumbar region 09/06/2021 ??? Idiopathic scoliosis of lumbar spine 09/06/2021 ??? Lumbar spondylosis 09/06/2021 Social History: No nicotine use No alcohol use Very active at home, enjoys taking care of animalsThiMobile Multimedia is no longer active. Please use [employer]. Review of Systems: As per HPI Denies fever, chills, weight loss, SOB, abdominal pain, arm weakness/numbness, bowel or bladder incontinence, balance issues Physical Exam: Patient Vitals for the past 24 hrs: Pulse BP SpO2 09/06/21 0949 93 149/62 99 % Appearance/ Behavior Well groomed, good eye contact, relaxed, cooperative, normal speech, no acute distress, no involuntary movements Lungs Respirations unlabored Cardiovascular Bilateral lower extremities warm and dry, pulses present and symmetrical Skin No rash, asymmetric hair loss, bruises, scars, swelling Musckuloskeletal Inspection/Palpation/ Range of Motion/Facet Loading maneuvers Gait: Nonantalgic Assistive device: None Heel, toe, heel to toe: Without difficulty Inspection: posture with shoulders rolled forward, shoulder and hip levels grossly equal; no skin breakdown ROM: Lumbar ROM intact with the exception of extension to 5 degrees Palpation: No significant midline lumbar tenderness. No tenderness over the ischial bursa, no tenderness over the SI joint. No pain with Kemps maneuver on the right or left. Bilateral IT band tenderness. Negative sacroiliac joint dysfunction tests, negative weakness with abduction. Positive straight leg raise left Neuro Motor Strength Segment Muscle Action Bilateral Results L2-5, S 1 Gluteus medius Hip Adduction 5/5 L4-5, S1 Gluteus medius Hip Abduction 5/5 L2 Iliopsoas Hip flexion 5/5 L3 Quadriceps Knee extension 5/5 L4 Tibialis anterior Ankle Dorsiflexion 5/5 L5 Extensor hallucis Great toe extension 5/5 S1 Gastrocnemius Ankle Plantar flexion 5/5 Reflexes: Segment Tendon Bilateral L3-4 Patella 2+ S1 Ankle 2+ Lower Babinski Down going Clonus Neg Sensory Exam: Diminished sensation distal L5 dermatome Imaging & Other Studies: Lumbar MRI 07/11/2021- report does not note lumbarized S1 but level findings consistent with nomenclature assuming lumbarized S1. Assessment: Ms. Hackett is a 71 y.o. year-old female who presents to the [facility] for left sided lumbar radicular symptoms, h/o lumbar scoliosis and lumbar spondylosis, most recent MRI lumbar 07/10/2021, there is lateral recess narrowing at the L5-S1 level consistent with her symptoms and physical exam findings. I have recommended a lumbar interlaminar epidural steroid injection for Ms. Hackett. She has relatively new onset radicular pain in a dermatomal distribution. She has a physical examination with corroborative findings of radiculopathy. She also has a recent MRI confirming the presence of disc pathologyresulting in nerve root impingement and/or irritation. This treatment will be used in conjunction with active rehab efforts to afford her the best possible outcome. Ms. Hackett and I have discussed the procedure using anatomical models and this was also discussed with patient by Dr. Ortega. She also has some bilateral IT band tenderness s/p bilateral SHAHRAM which, we discussed using topical diclofenac for. I do not find that her symptoms are consistent with IT band syndrome. . Recommendations: Imaging: ?? Reviewed images from MRI lumbar 07/10/2021 with patient Physical Medicine: ?? Continue home exercises per physical therapy Has multiple exercises that involve lumbar extension, recommend holding on bridging until she has less pain and improvement with other exercises Consider referral to [place] physical therapy to update home exercise regime Medications: ?? Continue medication management through PCP and rheum ?? Did discuss option of using Voltaren gel to bilateral IT bands Interventions: ?? Recommend L5-S1 LEFT Intralaminar ANÍBAL - discuss with Dr. Ortega as Shared Visit- see note from same DOS Follow up: ?? 3-4 weeks after procedure - telehealth ok unless patient has new or worsening in symptoms Thank you Dr. Romo for allowing my participation in Phoebe Hackett's care. Day Peralta, MSN, [employer]- C, [employer] Nurse Practitioner [facility] [address] [phone] / [facility] documented in this encounter Plan of Treatment Not on filedocumented as of this encounter Visit Diagnoses Diagnosis Radiculopathy of lumbar region Thoracic or lumbosacral neuritis or radi culitis, unspecified documented in this encounter Care Teams Full Stack Php Developer Relationship Specialty Start Date End Date Nataliia Romo APRN PCP - General Family Medicine 07/21/21 [address] [place] [address] documented as of this encounter
--- OUTSIDE RECORDS SUMMARY | 2022-03-17 02:32 | XMS_ITS | Encounter Summary ---
:1950 Author Organization [facility] Address [address] [place] [address] Care Team Providers Name Role Phone Noé Muhammad MD Primary Care Provider Encounter Details Date Type Department Care Team Description 08/18/2017 Results Only Imaging [facility]- Unknown, NADIRA Junior MD [phone] Social History Tobacco Use Types Packs/Day Years Used Date Never Assessed Sex Assigned at Date Recorded Not on file documented as of this encounter Plan of Treatment Upcoming Encounters Date Type Specialty Care Team Description 04/07/2022 Telemedicine Rheumatology Good Arauz , BODY REPAIRER [address] [facility] [address] [place] [address] Pending Results Name Type Priority Associated Diagnoses Date/Ti me OUTSIDE IMAGES - MR MSK Imaging 07/31 10:42 EST OUTSIDE IMAGES - MR NEURO Imaging 10:42 EST documented as of this encounter Visit Diagnoses Not on filedocumented in this encounter Care Teams Dispensing Audiologist Relationship Specialty Start Date End Date Noé Muhammad MD PCP - General 07/21/11 03/07/20 [address] [place] [phone] documented as of this encounter
--- OUTSIDE RECORDS SUMMARY | 2022-03-17 02:32 | XMS_ITS | Encounter Summary ---
:1950 Author Organization [facility] [place] [address] Care Team Providers Name Role Phone Nataliia Romo APRN Primary Care Provider Encounter Details Date Type Department Care Team Description 09/09/2021 Telephone Pain and Spine Samantha onofre at [facility] Sienna [place]jo, [place] [phone] Social History Tobacco Use Types Packs/Day Years Used Date Never Assessed Sex Assigned at Date Recorded Not on file documented as of this encounter Miscellaneous Notes Telephone Encounter - Sienna Cornejo, RN - 09/09/2021 1:12 PM EST Contact made with patient or financial sales representative as identified in contacts 1. Patient instructed to arrive at 13:00 on 09/13/21 with their truck driver helper for their LESI 2. procedure. Please plan to spend about 2 hours at the center. (3 hours for RFA) 3. Has pt started any new medications or supplements in the past two weeks? No 4. Have any of the following occurred within the two weeks before the procedure date? a. Patient is having a Covid vaccine or other vaccine No b. Patient has been exposed to anybody with a contagious illness such as Covid, flu, No c. Patient is taking antibiotics to treat an infection No d. Patient has any skin rashes, breakdown, blisters or open wounds No e. Patient has had any hospitalizations, ED visits, surgery, other procedure, dental procedure No f. Patient has taken oral steroids or had a steroid injection No g. Does patient have any of the following symptoms that are NEW and NOT explained by another health condition: fever or chills, cough, shortness of breath or difficulty breathing, fatigue, muscle or body aches, headache, new loss of taste or smell, sore throat, congestion or runny nose, nausea or vomit ing, diarrhea. No If yes, the patient has been directed to the covid hotline for testing prior to their procedure. (route telephone note to: [facility] covid 19 nurse triage with routing comment stating pt needs covid test prior to procedure and give date of procedure, add name and MRN to tracking tool). h. Has the patient's pain resolved or significantly improved such as a rating of 3/10 or less? No 5. Was patient instructed to stop any medications? No if yes: a. Name of medication(s): b. Confirm date of last dose: 6. Is patient having a nerve block: No a. If yes instructed to not take any pain medication for 12 hours before your procedure. 7. Patient instructed to take any prescribed medications that they were not told to stop, especiallyblood pressure medication, because their procedure may be cancelled if their blood pressure is too high. 8. Was patient instructed to follow NPO guidelines: No if yes, the following instructions were reviewed: a. You may eat up to 6 hours before your procedure b. You may have clear liquids only up to 2 hours before your procedure: water, apple juice, gail onelia, sprite, popsicles, broth, tea or coffee plain or with sweetener, absolutely no dairy products, nomilk including soy, oat, almond. 9. IF RFA: Does patient have a pacemaker? No a. If yes, document that cardiology was called and notified. 10. Additional notes if applicable: Patient expressed understanding and agreement with instructions Yes Patient denies further questions Yes documented in this encounter Plan of Treatment Not on filedocumented as of this encounter Visit Diagnoses Not on filedocumented in this encounter Care Teams Gas Cutting Machine Operator Relationship Specialty Start Date End Date Nataliia Romo APRN PCP - General Family Medicine 07/21/21 [facility] [address] documented as of this encounter
--- OUTSIDE RECORDS SUMMARY | 2022-03-17 02:32 | XMS_ITS | Encounter Summary ---
:1950 Author Organization [facility] Address [address] [place] [address] Care Team Providers Name Role Phone Nataliia Romo NP Primary Care Provider Reason for Visit Reason Comments Follow-up Pt states she feels very tir ed all the time.MOre than usually. Pain in hands and lower back. Hands are stiffer than before.Takes Advil 3 times a day which helps. 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) use of non-steroidal anti-inflammatories (nsaid); [address] [place] [address] [facility] [address] [place] [address] Social History Tobacco Use Types Packs/Day Years Used Date Never Smoker Smokeless Tobacco: Never Used Alcohol Use Standard Drinks/Week Comments Not Currently 0 (1 standard drink = 0.6 oz pure alcoho l) Sex Assigned at Date Recorded Not on file documented as of this encounter Last Filed Vital Signs Vital Sign Reading Time Taken Comments Blood Pressure 142/86 04/29/2021 0815 EDT Pulse - - Temperature - - Respiratory Rate - - Oxygen Saturation - - Inhaled Oxygen Concentration - - Weight 59 kg (130 lb) 04/29/2021 0815 EDT Height - - Body Mass Index 23.03 04/23/2020 1020 EDT documented in this encounter Patient Instructions Patient InstructionsSyTherese coulter APRN - 04/29/2021 8:15 EDT Get labs drawn today When the time is right, stop ibuprofen and trial the meloxicam for 3 weeks to see if better efficacy Begin with taking 3 pills of the methotrexate at the same time once a week. About 12-18 hours later,take 2 pills of the leucovorin once a week Will repeat labs 4-5 weeks after starting the methotrexate documented in this encounter Ordered Prescriptions Prescription Sig Dispensed Refills Start Date End Date leucovorin Take 2 tablets once a 12 Tablet 1 04/29/2021 (WELLCOVORIN) 5 mg week, 12 -18 hours tabletIndications: after dose of Erosive methotrexate (osteo)arthritis methotrexate 2.5 mg Take 3 Tablets by 18 Tablet 1 tabletIndications: mouth once a week. Erosive (osteo)arthritis meloxicam (MOBIC) 7.5 Take 1 Tablet by mouth 60 Tablet 1 07/30/2021 mg tabletIndications: 2 times daily. Erosive (osteo)arthritis documented in this encounter Progress Notes Therese Arauz APRN - 04/29/2021 0815 EDT [facility] [place] Chief Complaint Patient presents with ??? Follow-up Pt states she feels very tired all the time.MOre than usually. Pain in hands and lower back. Hands are stiffer than before.Takes Advil 3 times a day which helps. Rheumatology history: Erosive hand arthritis CYRIL, RF and CCP negative Mildly elevated CRP in past Skin psoriasis Left and right hip replacements (Dr. Jose Randolph) Right shoulder RTC repair (Dr. Radha Randolph) HPI: Last visit on 04/23/2020. Initial evaluation on 03/30/2020. Hand x-rays with erosive changes of DIP joints and PIP joints with some mild periosteal fluffing INTERVAL HISTORY: Since her last visit 1 year ago, she notes worsening hand pain particularly of herleft small finger. Decreased function. Continues to knit throughout the year. Chronic low back pain worsening over the last 2 years. Now has left side greater than right posterior buttock pain radiating to below the knee. Pain worse with sitting. Also has symptoms of fatigue during the day. Ongoing dry scaly skin primarily of her hands. Remote visit with Dr. Nugent with prescription cream advised but admits she has not gotten that refilled or currently using that. Prescribed methotrexate 1 year ago but she decided against taking that medication. Currently taking 3 ibuprofen after breakfast, another dose in the early afternoon as well as an evening dose primarily for her back pain. No interim visit with her PCP and no labs done since 1 year ago. Current Outpatient Medications Medication ??? cetirizine (ZYRTEC) 10 mg tablet ??? ibuprofen (MOTRIN) 200 mg tablet ??? [...] Systems Constitutional: Positive for malaise/fatigue. Negative for weight loss. Eyes: Negative for redness. Respiratory: Negative for cough. Cardiovascular: Negative for chest pain. Musculoskeletal: Positive for back pain and joint pain. Skin: Positive for itching and rash. Physical Examination: BP (!) 142/86 Wt 59 kg (130 lb) BMI 23.03 kg/m?? EYES: Conjunctivae not injected ENT: Oral and nasal mucosa not examined. Protective mask in place secondary to COVID-19 precautions. NECK: Limited cervical spine extension as well as rotation to left and right approximately 30 degrees in either plane. CHEST: Clear to auscultation bilaterally. CARDIOVASCULAR: Regular rate and rhythm. No murmur. No peripheral edema. SKIN: Rash on dorsal aspect of both hands as well as small patch on upper arm right side.??Mild plaque appearance overlying the left hand 4th and 5th fingers. No nail pitting. MUSCULOSKELETAL EXAM:??Left hand with hypertrophic PIP joints index and long finger. ??Right index finger with mucous cyst overlying DIP joint without drainage but with erythema. Positive crepitance with CMC shuck and grind butno pain. ??No tenderness over the ulnar fovea. ??No triggering of any digits. ??No nail changes. ??Exam of right hand again with hypertrophic DIP joints along with PIP joints primarily index and long. ??No appreciable synovitis overlying the CMC MCP joints. ??Some ulnar prominence. ??CMC shuck and grind with some crepitus but no pain. ??Negative Dima's carpal compression. Negative straight leg raise for radiculopathy bilaterally both while seated and supine. Mild discomfort with hip external rotation on the left. Tenderness midline lumbar spine. Well-preserved strength to resisted manual muscle testing in hip flexion, IR/ER. Labs: No visits with results within 3 Month(s) from this visit. Latest known visit with results is: Lab Requisition on 04/11/2020 Component Date Value ? ? CCP Antibodies 04/11/2020 <2.5 Diagnosis / Assessment: Problem List Items Addressed This Visit None Visit Diagnoses Erosive (osteo)arthritis - Primary Relevant Medications meloxicam (MOBIC) 7.5 mg tablet methotrexate 2.5 mg tablet leucovorin (WELLCOVORIN) 5 mg tablet Other Relevant Orders COMPLETE BLOOD COUNT AND DIFFERENTIAL COMPREHENSIVE METABOLIC PANEL (CMP) C REACTIVE PROTEIN COMPLETE BLOOD COUNT WITH DIFFERENTIAL (AUTO) (Completed) COMPREHENSIVE METABOLIC PANEL (CMP) (Completed) C REACTIVE PROTEIN (Completed) [facility] (current) use of non-steroidal anti-inflammatories (nsaid) Relevant Orders COMPREHENSIVE METABOLIC PANEL (CMP) Malaise and fatigue Relevant Orders SPEP, INCLUDES QUANTITATION OF MONOCLONAL SPIKE Worsening hand pain and function. Increased back pain and left and right lower extremity radiation. Working diagnosis of psoriatic arthritis versus erosive OA Recommendations/Evaluation: Given her systemic symptoms of increased fatigue as well as chronic joint pain and now back pain, recommend additional labs today. She has been taking chronic doses of ibuprofen to manage her pain. Discussed if her renal function not contraindicated, prefer to change her to a more steady state NSAID for her pain. Also discussed potential benefit of DMARD such as methotrexate for management of her psoriatic arthritis as well as her skin lesions. Baseline labs to be done today. She would likely hold off on starting this medication until some of her obligations over the next few weeks are met. Patient instructed to call the office so we can time follow-up labs appropriately with initiation ofmethotrexate. Consider lumbar spine films if pain continues. Also consider outpatient physical therapy for complaints. Follow-up with me in 3 months for reevaluation. Therese Arauz APRN 04/29/2021 10:07 documented in this encounter Plan of Treatment Upcoming Encounters Date Type Specialty Care Team Description 04/07/2022 Telemedicine Rheumatology Good Arauz APRN 130 [facility] [address] [phone] Scheduled Orders Name Type Priority Associated Diagnoses Order S chedule SPEP, INCLUDES QUANTITATION Lab Routine Malaise and f atigue Expected: 04/29/2021, OF MONOCLONAL SPIKE Expires: 04/29/2022 documented as of this encounter Procedures Procedure Name Priority Date/Time Associated Comments Diagnosis COMPLETE BLOOD COUNT Routine 04/29/2021 9:39 Erosive Resu lts for this WITH DIFFERENTIAL EDT (osteo)arthritis proced ure are in (AUTO) the results section. C REACTIVE PROTEIN Routine 04/29/2021 9:39 Erosive Result s for this EDT (osteo)arthritis procedure a re in the results section. SPEP, INCLUDES Routine 04/29/2021 9:39 Erosive Results fo r this QUANTITATION OF EDT (osteo)arthritis procedur e are in MONOCLONAL SPIKE the results section. COMPREHENSIVE Routine 04/29/2021 9:39 Erosive Results for this METABOLIC PANEL (CMP) EDT (osteo)arthritis pr ocedure are in the results section. documented in this encounter Results (ABNORMAL) SPEP, INCLUDES QUANTITATION OF MONOCLONAL SPIKE (04/29/2021 9:39 EDT) Pathologist [place] [id number] - CV 4.5 2.9 - 4.9 % [facility] ALPHA 2 - [facility] 10.6 7.1 - 11.8 % [facility] ALBUMIN - [facility] 66.0 55.8 - 66.1 [facility] BETA - [facility] 10.3 8.4 - 13.1 % [facility] COMMENTS - [facility] SEE BELOW () [facility] Comment: [facility]ENTER LAB RESULT: No apparent monoclonal protein seen on serum e lectrophoresis See scanned/supplementary report. Test performed or referred by The [address] [address] Gamma % 8.6 (A) 11.1 - 18.8 [facility] Protein, 24H 6.9 6.3 - 8.2 [facility] Urine g/dL [facility] Specimen Narrative [facility] - 12:36 EDT Does PT Have a Latex Allergy? NO Performing Organization Address City/[facility] Phon e Number [facility] [address] [place] [address] (ABNORMAL) C REACTIVE PROTEIN (04/29/2021 9:39 EDT) Pathologist Sig nature C-Reactive Protein 12.5 (H) <10.0 mg/L [facility] Specimen Narrative [facility] - 10:51 EDT Does PT Have a Latex Allergy? NO Performing Organization Address City/[facility]/ZIP [facility] Phon e Number [facility] [address] [place] [address] (ABNORMAL) COMPREHENSIVE METABOLIC PANEL (CMP) (04/29/2021 9:39 EDT) ALBUMIN - [facility] 4.6 3.4 - 4.9 [facility] g/dL [facility] ALKALINE 74 38 - 126 U/L [facility] PHOSPHATASE - [facility] BILIRUBIN TOTAL 0.2 0.2 - 1.3 [facility] mg/dL [facility] BUN - [facility] 23 10 - 26 mg/dL [facility] CALCIUM - [facility] 10.1 8.5 - 10.5 [facility] mg/dL [facility] Chloride 105 96 - 110 [facility] mmol/L [facility] CO2 Total 23 22 - 32 mEq/L [facility] CREATININE 1.02 0.52 - 1.04 [facility] mg/dL [facility] eGFR 53 [facility] Comment: [facility] Stage 3: Moderate renal impairment is defined as GFR 3 0-59 Multiply result by 1.210 for patients . eGFR calculated using the IDMS-traceable MDRD Study Equation. ??(effective 07/03/2014) Anion Gap 12 0 - 18 [facility] GLUCOSE - [facility] 101 (H) 70 - 100 [facility] mg/dL [facility] Potassium 5.3 (H) 3.5 - 5.0 [facility] mEq/L [facility] Sodium 140 136 - 145 [facility] mEq/L [facility] TOTAL PROTEIN - 6.9 6.2 - 8.2 [facility] gm/dL [facility] SGOT/AST - [facility] 22 14 - 36 U/L [facility] SGPT/ALT - [facility] 11 0 - 35 U/L [facility] Specimen Narrative [facility] - 021 10:51 EDT Does PT Have a Latex Allergy? NO Performing Organization Address City/State/ZIP Code Phon e Number [facility] [address] [place] [address] (ABNORMAL) COMPLETE BLOOD COUNT WITH DIFFERENTIAL (AUTO) (04/29/2021 9:39 EDT) Pathologist Sig nature ABSOLUTE NEUTROPHIL 8.0 2.2 - 8.85 [facility] COUN - [facility] 10e3/uL [facility] BASO # - MC 0.08 0.01 - 0.11 [facility] 10e/uL [facility] BASO % - [facility] 1 0 - 2 % [facility] EOS # - [facility] 0.46 0.03 - 0.61 [facility] 10e3/ul [facility] EOS % - [facility] 4 0 - 5 % [facility] GRAN % - [facility] 69.1 40 - 80 % [facility] HEMATOCRIT - [facility] 40.7 34.9 - 44.4 % [facility] HEMOGLOBIN - [facility] 12.6 11.6 - 15.2 [facility] g/dl [facility] IG# - [facility] 0.07 0 - 0.7 10e3/uL [facility] IG% - [facility] 0.6 0 - 0.9 % [facility] LYMPH # - [facility] 2.0 1.09 - 3.3 [facility] 10e3/ul [facility] LYMPH% - [facility] 17.5 (L) 20 - 40 % [facility] MEAN CORPUSCULAR HGB 30.4 26.7 - 33.3 pg [facility] ME D - [facility] LAB MEAN CORPUSCULAR HGB 31.0 (L) 32.1 - 35.9 [facility] CONC - [facility] g/dL [facility] MEAN CELL VOLUME - 98.1 (H) 81 - 98 fl [facility]ENTER LAB MONO # - [facility] 0.9 (H) 0.1 - 0.8 [facility] 10e3/uL [facility] MONO% - [facility] 8.1 0 - 12 % [facility] PLATELET COUNT 465 (H) 141 - 377 [facility] 10e3/ul [facility] RED BLOOD COUNT - 4.15 3.86 - 5.04 [facility] 10e6/ul [facility] RED CELL DISTRI WIDTH 13.2 <14.7 % [facility]ENTER LAB WHITE BLOOD COUNT - 11.5 4.0 - 12.4 [facility] 10e3/ul [facility] Specimen Narrative [facility] - 021 10:26 EDT Does PT Have a Latex Allergy? 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 Therapy completed (CANNABIDIOL ORAL) methotrexate 2.5 mg Take 4 Tabs by Therapy completed 04/23/2020 0 04/29/2021 tabletIndications: mouth once a Psoriasis, Erosive week. osteoarthritis of multiple sites leucovorin (WELLCOVORIN) 5 Take 2 Tabs by Therapy completed 020 04/29/2021 mg tabletIndications: mouth daily. Psoriasis, Erosive osteoarthritis of multiple sites documented as of this encounter Historical Medications This list may reflect changes made after this encounter. Medication Sig Dispensed Refills Start Date End Date cetirizine (ZYRTEC) 10 mg Take 10 mg by mouth 0 tablet daily. added in this encounter Care Teams Cash Grain Grower Relationship Specialty Start Date End Date Nataliia Romo, REID PCP - General 03/08/[address] [place] [address] documented as of this encounter
--- OUTSIDE RECORDS SUMMARY | 2022-03-17 02:32 | XMS_ITS | Encounter Summary ---
:1950 Author Organization [facility] Address [address] [place] [address] Care Team Providers Name Role Phone Noé Muhammad MD Primary Care Provider Nataliia Romo NP Primary Care Provider Encounter Details Date Type Department Care Team Description 02/29/2020 Lab Requisition [facility] Outr Resulting Lab, Pathology & Laboratory Provider [facility] [address] [place] [id number] Social History Tobacco Use Types Packs/Day Years Used Date Never Assessed Sex Assigned at Date Recorded Not on file documented as of this encounter Plan of Treatment Upcoming Encounters Date Type Specialty Care Team Description 04/07/2022 Telemedicine Rheumatology Good Arauz , BINDING PRINTER 130 [facility] [address] [phone] documented as of this encounter Procedures Procedure Name Priority Date/Time Associated Comments Diagnosis HOLD SST Today 02/28/2020 8:15 EDT Results for this procedure are i n the results section. RHEUMATOID FACTOR Today 02/28/2020 8:15 EDT Res ults for this procedure are i n the results section. ANTI NUCLEAR AB Today 02/28/2020 8:15 EDT Resul ts for this (CYRIL), IFA procedure are i n the results section. documented in this encounter Results HOLD SST (02/28/2020 8:15 EDT) Pathologist Sig nature Hold Hold [facility] Specimen Blood - Venous blood (substance) Performing Organization Address City/State/ZIP Code Phon e Number [facility] [address] [place] [address] SERVICES RHEUMATOID FACTOR (02/28/2020 8:15 EDT) Pathologist Sig nature Rheumatoid Factor <8.6 <12.0 IU/mL [facility] SERVICES Specimen Blood - Venous blood (substance) Performing Organization Address City/[facility] Phon e Number [facility] [address] [place] [address] SERVICES ANTI NUCLEAR AB (CYRIL), IFA (02/28/2020 8:15 EDT) Pathologist Sig nature CYRIL Interpretation Negative Negative [facility] Specimen Blood - Venous blood (substance) Narrative [facility] - 03/01/2020 15:18 EDT Results were obtained with the [employer] NOV A Lite HEp-2 CYRIL Kit by indirect immunofluorescence. Performing Organization Address [facility] Code Phon e Number [facility] [address] [place] [phone] SERVICES documented in this encounter Visit Diagnoses Not on filedocumented in this encounter Care Teams Carpenter Refrigerator Relationship Specialty Start Date End Date Noé uMhammad MD PCP - General 07/21/11 03/07/[address] [place] [phone] Nataliia Romo NP PCP - General 03/08/20 [place] [address] documented as of this encounter
--- OUTSIDE RECORDS SUMMARY | 2022-03-17 02:32 | XMS_ITS | Encounter Summary ---
:1950 Author Organization [facility] Address [address] [place] [address] Care Team Providers Name Role Phone Nataliia Romo NP Primary Care Provider Reason for Referral Laboratory Services (Routine/Next Available) - New Request Specialty Diagnoses / Procedures Referred By Contact Refer red To Contact Diagnoses Psoriasis Erosive (osteo)arthritis High risk medication use Therese Arauz APRN Procedures COMPLETE BLOOD COUNT AND DIFFERENTIAL [address] [facility] [address] [place] [address] Referral ID Status Reason Start Date Expiration Date Visits V isits Requested Authorized [id number] New Request 10/28/2021 6 6 Laboratory Services (Routine/Next Available) - New Request Specialty Diagnoses / Procedures Referred By Contact Refer red To Contact Diagnoses Psoriasis Erosive (osteo)arthritis High risk medication use Therese Arauz APRN Procedures COMPREHENSIVE METABOLIC PANEL (CMP) [address] [facility] [address] [place] [address] Referral ID Status Reason Start Date Expiration Date Visits V isits Requested Authorized [id number] New Request 10/28/2021 6 6 Encounter Details Date Type Department Care Team Description 10/28/2021 Orders Only [facility] - Janina Lambert Psor iasis (Primary Dx); [facility] [place] RN Erosive (osteo)arthritis; [address] High risk medication use [place] [phone] Social History Tobacco Use Types Packs/Day Years Used Date Never Smoker Smokeless Tobacco: Never Used Alcohol Use Standard Drinks/Week Comments Not Currently 0 (1 standard drink = 0.6 oz pure alcoho l) Sex Assigned at Date Recorded Not on file documented as of this encounter Progress Notes Janina Lambert, RN - 10/28/2021 1657 EST DMARD standing lab orders placed and faxed to [facility]. documented in this encounter Plan of Treatment Upcoming Encounters Date Type Specialty Care Team Description 04/07/2022 Telemedicine Rheumatology Good Arauz , MEDICAL OFFICE PROFESSIONAL INSTRUCTOR 130 [facility] [address] [phone] Scheduled Orders Name Type Priority Associated Diagnoses Order S chedule COMPREHENSIVE METABOLIC Lab Routine Psoriasi s 6 Occurrences starting PANEL (CMP) Erosive 10/28/2021 unti l (osteo)arthritis 10/28/2022 High risk medication use COMPLETE BLOOD COUNT AND Lab Routine Psorias is 6 Occurrences starting DIFFERENTIAL Erosive 10/28/2021 unti l (osteo)arthritis 10/28/2022 High risk medication use documented as of this encounter Visit Diagnoses Diagnosis Psoriasis - Primary Other psoriasis Erosive (osteo)arthritis High risk medication use Encounter for long-term (current) use of other medications documented in this encounter Care Teams Deck Lid Fitter Relationship Specialty Start Date End Date Nataliia Romo NP PCP - General 03/08/20 [address] [place], [place] [phone] documented as of this encounter
--- OUTSIDE RECORDS SUMMARY | 2022-03-17 02:32 | XMS_ITS | Encounter Summary ---
:1950 Author Organization [facility] Address [address] [place] [address] Care Team Providers Name Role Phone Nataliia Romo NP Primary Care Provider Encounter Details Date Type Department Care Team Description 04/11/2020 Lab Requisition [facility] Outr Resulting Lab, Pathology & Laboratory Provider [facility] [address] [place], [place] [phone] Social History Tobacco Use Types Packs/Day Years Used Date Never Smoker Smokeless Tobacco: Never Used Alcohol Use Standard Drinks/Week Comments Not Currently 0 (1 standard drink = 0.6 oz pure alcoho l) Sex Assigned at Date Recorded Not on file documented as of this encounter Plan of Treatment Upcoming Encounters Date Type Specialty Care Team Description 04/07/2022 Telemedicine Rheumatology Good Arauz , MACHINE CLEANER [address] [phone] documented as of this encounter Procedures Procedure Name Priority Date/Time Associated Diagnosis Comme nts CCP ANTIBODIES Routine 04/11/2020 10:18 EDT Resul ts for this procedure are i n the results section . documented in this encounter Results CCP ANTIBODIES (04/11/2020 10:18 EDT) Pathologist Sig nature CCP Antibodies <2.5 <5.0 U/mL [facility] Specimen Blood - Venous blood (substance) Performing Organization Address City/State/ZIP Code Phon e Number [facility] [address] [place] [address] SERVICES documented in this encounter Visit Diagnoses Not on filedocumented in this encounter Care Teams Building And Grounds Supervisor Relationship Specialty Start Date End Date Nataliia Romo NP PCP - General 03/08/20 [address] [place] [address] documented as of this encounter
--- OUTSIDE RECORDS SUMMARY | 2022-03-17 02:32 | XMS_ITS | Encounter Summary ---
:[address] [facility] Address [address] [place] [address] Care Team Providers Name Role Phone Demetrius Nataliia MATHEWS Primary Care Provider Encounter Details Date Type Department Care Team Description 04/29/2021 Lab Requisition [facility] Outr Resulting Lab, Pathology & Laboratory Provider [facility] [address] [place] [address] Social History Tobacco Use Types Packs/Day Years Used Date Never Smoker Smokeless Tobacco: Never Used Alcohol Use Standard Drinks/Week Comments Not Currently 0 (1 standard drink = 0.6 oz pure alcoho l) Sex Assigned at Date Recorded Not on file documented as of this encounter Plan of Treatment Upcoming Encounters Date Type Specialty Care Team Description 04/07/2022 Telemedicine Rheumatology Good Arauz , SAGGER SOAK [address] [facility] [address] [address] documented as of this encounter Procedures Procedure Name Priority Date/Time Associated Comments Diagnosis SPEP, INCLUDES Today 04/29/2021 9:39 Results fo r this QUANTITATION OF EDT procedure ar e in MONOCLONAL SPIKE the results PERFORMABLE section. SPEP, INCLUDES Routine 04/29/2021 9:39 Results fo r this QUANTITATION OF EDT procedure ar e in MONOCLONAL SPIKE the results section. PROTEIN, TOTAL Today 04/29/2021 9:39 EDT documented in this encounter Results (ABNORMAL) SPEP, INCLUDES QUANTITATION OF MONOCLONAL SPIKE PERFORMABLE (04/29/2021 9:39 EDT) Albumin % 66.0 55.8 - 66.1 % [facility] Alpha-1 % 4.5 2.9 - 4.9 % [facility] Alpha-2 % 10.6 7.1 - 11.8 % [facility] Beta % 10.3 8.4 - 13.1 % [facility] Gamma % 8.6 (L) 11.1 - 18.8 % [facility] SPEP Comment No apparent [facility] monoclonal protein LABORATORY SERVICES seen on serum electrophoresisComm ent: See scanned/supplementa ry report. Total Protein 6.9 6.3 - 8.2 g/dL [facility] Specimen Blood - Venous blood (substance) Narrative This result has an attachment that is no t available. Performing Organization Address City/State/ZIP Code Phon e Number [facility] [address] [place] [address] SERVICES PROTEIN, TOTAL (04/29/2021 9:39 EDT) Specimen Blood - Venous blood (substance) Performing Organization Address City/State/ZIP Code Phon e Number [facility] [address] [place] [address] SERVICES documented in this encounter Visit Diagnoses Not on filedocumented in this encounter Care Teams Consultant Dietitian Relationship Specialty Start Date End Date Nataliia Romo NP PCP - General 03/08/20 [address] [facility], [place] [address] documented as of this encounter
--- OUTSIDE RECORDS SUMMARY | 2022-03-17 02:32 | XMS_ITS | Encounter Summary ---
:1950 Author Organization [facility] Address [address] [place] [address] Care Team Providers Name Role Phone Demetrius Nataliia MATHEWS Primary Care Provider Encounter Details Date Type Department Care Team Description 10/29/2021 Abstract [facility] [place] Janina Lambert RN Rheumatology [address] [place] [address] Social History Tobacco Use Types Packs/Day Years Used Date Never Smoker Smokeless Tobacco: Never Used Alcohol Use Standard Drinks/Week Comments Not Currently 0 (1 standard drink = 0.6 oz pure alcoho l) Sex Assigned at Date Recorded Not on file documented as of this encounter Plan of Treatment Upcoming Encounters Date Type Specialty Care Team Description 04/07/2022 Telemedicine Rheumatology Good Arauz, MANAGER DATABASE 130 [facility] [address] [place] [address] documented as of this encounter Procedures Procedure Name Priority Date/Time Associated Diagnosis Comme nts COMPREHENSIVE METABOLIC Routine 10/28/2021 Resu lts for this PANEL (CMP) procedure are i n the results section . documented in this encounter Results (ABNORMAL) COMPREHENSIVE METABOLIC PANEL (CMP) (10/28/2021) Pathologist Sig nature GFR, Calculated, 44.04 (A) 60 [facility] Glucose, Serum, 73 (A) 74 - 106 [facility] Albumin, External 4.1 3.4 - 5.0 [facility] Total Alkaline 84 46 - 116 [facility] External ALT, External 20 14 - 59 [facility] AST, External 17 15 - 37 [facility] BUN, External 28 (A) 7 - 18 [facility] Calculated Calcium, [facility] Calcium, External 10.3 (A) 8.5 - 10.1 [facility] Chloride, External 101 98 - 107 [facility] CO2, External 27.9 21.0 - 32.0 [facility] Creatinine, External 1.2 (A) 0.55 - 1.02 [facility] Fasting?, External [facility] Potassium, External 5.8 (A) 3.5 - 5.1 [facility] Sodium, External 134 (A) 136 - 145 [facility] Total Protein, 6.9 6.4 - 8.2 [facility] Bilirubin, Total, 0.3 0.2 - 1.0 [facility] Specimen Blood - Venous blood (substance) Performing Organization Address City/State/ZIP Code Phon e Number [facility] documented in this encounter Visit Diagnoses Not on filedocumented in this encounter Care Teams Team Otr Truck Driver Relationship Specialty Start Date End Date Nataliia Romo, REID PCP - General 03/08/20 [address] [place] [address] documented as of this encounter
--- OUTSIDE RECORDS SUMMARY | 2022-03-17 02:33 | XMS_ITS | Encounter Summary ---
:1950 Author Organization [facility] Address [address] [place] [address] Care Team Providers Name Role Phone Unavailable Primary Care Provider Unavailable Encounter Details Date Type Department Care Team Description 12/26/1999 Results Only [facility] - Kimberly Guy CNM [facility] [address] [place] [address] Social History Tobacco Use Types Packs/Day Years Used Date Never Assessed Sex Assigned at Date Recorded Not on file documented as of this encounter Plan of Treatment Upcoming Encounters Date Type Specialty Care Team Description 04/07/2022 Telemedicine Rheumatology Good Arauz , GUEST RELATIONS MANAGER 130 [facility] [address] [place] [address] documented as of this encounter Procedures Procedure Name Priority Date/Time Associated Diagnosis Comme nts CYTOPATHOLOGY Routine 12/26/1999 16:10 EDT Result s for this procedure are i n the results section . documented in this encounter Results CYTOPATHOLOGY (12/26/1999 16:10 EDT) Pathology Report: CYTOPATHOLOGY REPORT [facility] Reports generated via electronic interface contain sree ginal data; however they are lacking the format of the original re port. Caution should be taken when reading/interpreting unfo rmatted reports. Name: ? NGUYEN HACKETT ? Accession #: ? [id number] : ? 1950 (Age: 49) ??F ?Collect Date: ? 11/30 Location: ?Receive Date: ? 12/26/1999 Provider: ?KIMBERLY RICHARDSON CNM Copy to: ?KIMBERLY RICHARDSON CNM ? Specimen/Source: ?Spreader Box Operator ThinPrep Last Menstrual Period: ? GYNECOLOGIC ??CYTOPATHOLOG Y ??REPORT Name: NGUYEN HACKETT ?[facility] : 1950 ?? 49Y F ?Client ID: [id number] SS#: [id number] ? Ac cession #: [id number] Clinician: DEBRA SOPHIEMirian, KIMBERLY ?? Location: [facility] ??Copy to: ?? Specimen: ?Spreader Box Operator ThinPrep ? Source: Cervix/Endocervix ?Collected: 12/24/99 ? Received: 12/26/1999 ?LMP: 3 Years Ago ?Hormone Therapy: No ? : No ? Radiation Therapy: No ?? Post : No ?Chemotherapy: No ?IUD: No ? Prev Abnormal Pap: No ?? Clinical Hx: ?(Blank huang indicate information not provided on requisition) SPECIMEN ADEQUACY: ? Satisfactory For Evaluation ?? GENERAL CATEGORIZATION: ? WITHIN NORMAL LIMITS ? Reviewed And Electronically Signed By: ? Markus Nicole , [place](ASCP) ? Report Date : ?? 01/01/2000 [facility] Archived Tests - Final Diagnosis Text Field: Clinical History : ? Document reviewed and electronically signed by: ? Conversion ? Report Date: ??01/01/2000 00:00 End of Report Specimen Performing Organization Address City/State/ZIP Code Phon e Number [facility] [address] [place] [address] SERVICES [facility] [address] [place] [address] documented in this encounter Visit Diagnoses Not on filedocumented in this encounter
--- OUTSIDE RECORDS SUMMARY | 2022-03-17 02:33 | XMS_ITS | Encounter Summary ---
:1950 Author Organization [facility] Address [address] [place] [address] Care Team Providers Name Role Phone Unavailable Primary Care Provider Unavailable Encounter Details Date Type Department Care Team Description 01/04/2007 Results Only [facility] - Kimberly Guy CNM [facility] [address] [place] [address] Social History Tobacco Use Types Packs/Day Years Used Date Never Assessed Sex Assigned at Date Recorded Not on file documented as of this encounter Plan of Treatment Upcoming Encounters Date Type Specialty Care Team Description 04/07/2022 Telemedicine Rheumatology Good Arauz , UROLOGIC SURGEON 130 [facility] [address] [place] [address] documented as of this encounter Procedures Procedure Name Priority Date/Time Associated Diagnosis Comme nts CYTOPATHOLOGY Routine 01/04/2007 0:00 EDT Results for this procedure are i n the results section . documented in this encounter Results CYTOPATHOLOGY (01/04/2007 0:00 EDT) Pathology Report: CYTOPATHOLOGY REPORT [facility] Reports generated via electronic interface contain sree ginal data; however they are lacking the format of the original re port. Caution should be taken when reading/interpreting unfo rmatted reports. Name: ? NGUYEN HACKETT ? Accession #: ? [id number] : ? 1950 (Age: 56) ??F ?Collect Date: ? 0502/2007 Location: ? [facility] ? Receive Date : ? 01/05/2007 Provider: ?KIMBERLY RICHARDSON M Copy to: ? Specimen/Source: ? ThinPrep Pap Test, Cervix/Endocervix, processed on [employer] ThinPrep Imaging System, with manual evaluation Last Menstrual Period: ? 16 yrs ago Previous Gynecologic Pathology: ? Benign cellular changes: Other: ? HPVA - HPV testing requested if ASC-US on the current ThinPrep Pap test. ? SPECIMEN ADEQUACY ? Satisfactory for Evaluation - transformation zone component present GENERAL CATEGORIZATION ? Negative for Intraepithelial Lesion or Malignan cy ? Document reviewed and electronically signed by: ? Kimberly Albright, [facility](ASCP) ? Report Date: ??01/06/2007 15:36 End of Report Specimen Performing Organization Address City/State/ZIP Code Phon e Number [facility] [address] [place] [address] SERVICES [facility] [address] [place] [address] documented in this encounter Visit Diagnoses Not on filedocumented in this encounter
--- OUTSIDE RECORDS SUMMARY | 2022-03-17 02:33 | XMS_ITS | Encounter Summary ---
:1950 Author Organization [facility] Address [address] [place] [address] Care Team Providers Name Role Phone Unavailable Primary Care Provider Unavailable Encounter Details Date Type Department Care Team Description 12/24/2000 Results Only [facility] - Kimberly Guy CNM [facility] [address] [place] [address] Social History Tobacco Use Types Packs/Day Years Used Date Never Assessed Sex Assigned at Date Recorded Not on file documented as of this encounter Plan of Treatment Upcoming Encounters Date Type Specialty Care Team Description 04/07/2022 Telemedicine Rheumatology Good Arauz , HTML WEB DEVELOPER [address] [facility] [address] [place] [address] documented as of this encounter Procedures Procedure Name Priority Date/Time Associated Diagnosis Comme nts CYTOPATHOLOGY Routine 12/24/2000 0:00 EDT Results for this procedure are i n the results section . documented in this encounter Results CYTOPATHOLOGY (12/24/2000 0:00 EDT) Pathology Report: CYTOPATHOLOGY REPORT [facility] Reports generated via electronic interface contain sree ginal data; however they are lacking the format of the original re port. Caution should be taken when reading/interpreting unfo rmatted reports. Name: ? NGUYEN HACKETT ? Accession #: ? [id number] : ? 1950 (Age: 50) ??F ?Collect Date: ? 11/30 Location: ? [facility] ? Receive Date : ? 12/25/2000 Provider: ?KIMBERLY RICHARDSON CNM Copy to: ? Specimen/Source: ?ThinPrep Pap Test, Cervix/ Endocervix Last Menstrual Period: ? 1988 ? SPECIMEN ADEQUACY ? Satisfactory for evaluation. GENERAL CATEGORIZATION ? Within Normal Limits ? Document reviewed and electronically signed by: ? CINDA Spann(ASCP) ? Report Date: ??12/29/2000 10:40 End of Report Specimen Performing Organization Address City/State/ZIP Code Phon e Number [facility] [address] [place] [address] SERVICES [facility] [address] [place] [address] documented in this encounter Visit Diagnoses Not on filedocumented in this encounter
--- OUTSIDE RECORDS SUMMARY | 2022-03-17 02:33 | XMS_ITS | Encounter Summary ---
:1950 Author Organization [facility] Address [address] [place] [address] Care Team Providers Name Role Phone Unavailable Primary Care Provider Unavailable Encounter Details Date Type Department Care Team Description 01/01/2006 Results Only [facility] - Kimberly Guy CNM [facility] [address] [place] [address] Social History Tobacco Use Types Packs/Day Years Used Date Never Assessed Sex Assigned at Date Recorded Not on file documented as of this encounter Plan of Treatment Upcoming Encounters Date Type Specialty Care Team Description 04/07/2022 Telemedicine Rheumatology Good Arauz , INSIDE WIREMAN [address] [facility] [address] [place] [address] documented as of this encounter Procedures Procedure Name Priority Date/Time Associated Diagnosis Comme nts CYTOPATHOLOGY Routine 01/01/2006 0:00 EDT Results for this procedure are i n the results section . documented in this encounter Results CYTOPATHOLOGY (01/01/2006 0:00 EDT) Pathology Report: CYTOPATHOLOGY REPORT [facility] Reports generated via electronic interface contain sree ginal data; however they are lacking the format of the original re port. Caution should be taken when reading/interpreting unfo rmatted reports. Name: ? NGUYEN HACKETT ? Accession #: ? [id number] : ? 1950 (Age: 55) ??F ?Collect Date: ? 05/0 11/2005 Location: ? [facility] ? Receive Date : ? 01/02/2006 Provider: ?KIMBERLY RICHARDSON M Copy to: ? Specimen/Source: ? ThinPrep Pap Test, Cervix/Endocervix, processed on [employer] ThinPrep Imaging System, with manual evaluation Last Menstrual Period: ? 15 years ago Previous Gynecologic Pathology: ? Benign cellular changes: Other: ? HPVA - HPV testing requested if ASC-US on the current ThinPrep Pap test. ? SPECIMEN ADEQUACY ? Satisfactory for Evaluation - transformation zone component present GENERAL CATEGORIZATION ? Negative for Intraepithelial Lesion or Malignan cy ? Document reviewed and electronically signed by: ? Kimberly Albright, [facility](ASCP) ? Report Date: ??01/06/2006 11:28 End of Report Specimen Performing Organization Address City/State/ZIP Code Phon e Number [facility] [address] [place] [address] SERVICES [facility] [address] [place] [address] documented in this encounter Visit Diagnoses Not on filedocumented in this encounter
--- OUTSIDE RECORDS SUMMARY | 2022-03-17 02:33 | XMS_ITS | Encounter Summary ---
:[address] [facility] Address [address] [place] [address] Care Team Providers Name Role Phone Unavailable Primary Care Provider Unavailable Encounter Details Date Type Department Care Team Description 01/08/2005 Results Only [facility] - Kimberly Guy CNM [facility] [address] [place] [address] Social History Tobacco Use Types Packs/Day Years Used Date Never Assessed Sex Assigned at Date Recorded Not on file documented as of this encounter Plan of Treatment Upcoming Encounters Date Type Specialty Care Team Description 04/07/2022 Telemedicine Rheumatology Good Arauz , BONDING MOLDER 130 [facility] [address] [place] [address] documented as of this encounter Procedures Procedure Name Priority Date/Time Associated Diagnosis Comme nts CYTOPATHOLOGY Routine 01/08/2005 0:00 EDT Results for this procedure are i n the results section . documented in this encounter Results CYTOPATHOLOGY (01/08/2005 0:00 EDT) Pathology Report: CYTOPATHOLOGY REPORT [facility] Reports generated via electronic interface contain sree ginal data; however they are lacking the format of the original re port. Caution should be taken when reading/interpreting unfo rmatted reports. Name: ? NGUYEN HACKETT ? Accession #: ? [id number] : ? 1950 (Age: 54) ??F ?Collect Date: ? 12/29 Location: ? [facility] ? Receive Date : ? 01/10/2005 Provider: ?KIMBERLY RICHARDSON CNM Copy to: ? Specimen/Source: ?ThinPrep Pap Test, Cervix/ Endocervix Last Menstrual Period: ? 14+ years ago Other: ? HPVA - HPV testing requested if ASC-US on the current ThinPrep Pap test. ? SPECIMEN ADEQUACY ? Satisfactory for Evaluation - transformation zone component present GENERAL CATEGORIZATION ? Negative for Intraepithelial Lesion or Malignan cy ? Document reviewed and electronically signed by: ? Trish Friend, [facility](ASCP) ? Report Date: ??01/16/2005 08:46 End of Report Specimen Performing Organization Address City/State/ZIP Code Phon e Number [facility] [address] [place] [address] SERVICES [facility] [address] [place] [address] documented in this encounter Visit Diagnoses Not on filedocumented in this encounter
--- OUTSIDE RECORDS SUMMARY | 2022-03-17 02:33 | XMS_ITS | Encounter Summary ---
:1950 Author Organization [facility] Address [address] [place] [address] Care Team Providers Name Role Phone Unavailable Primary Care Provider Unavailable Encounter Details Date Type Department Care Team Description 12/29/2003 Results Only [facility] - Kimberly Guy CNM [facility] [address] [place] [address] Social History Tobacco Use Types Packs/Day Years Used Date Never Assessed Sex Assigned at Date Recorded Not on file documented as of this encounter Plan of Treatment Upcoming Encounters Date Type Specialty Care Team Description 04/07/2022 Telemedicine Rheumatology Good Arauz , ELECTRONICS RESEARCH ENGINEER [address] [facility] [address] [place] [address] documented as of this encounter Procedures Procedure Name Priority Date/Time Associated Diagnosis Comme nts CYTOPATHOLOGY Routine 12/29/2003 0:00 EDT Results for this procedure are i n the results section . documented in this encounter Results CYTOPATHOLOGY (12/29/2003 0:00 EDT) Pathology Report: CYTOPATHOLOGY REPORT [facility] Reports generated via electronic interface contain sree ginal data; however they are lacking the format of the original re port. Caution should be taken when reading/interpreting unfo rmatted reports. Name: ? NGUYEN HACKETT ? Accession #: ? [id number] : ? 1950 (Age: 53) ??F ?Collect Date: ? 12/01 Location: ? [facility] ? Receive Date : ? 01/01/2004 Provider: ?KIMBERLY RICHARDSON CNM Copy to: ? Specimen/Source: ?ThinPrep Pap Test, Endocer vix Last Menstrual Period: ? 13 + yrs ago Previous Gynecologic Pathology: ? Benign cellular changes: , paps neg. since ? SPECIMEN ADEQUACY ? Satisfactory for Evaluation - transformation zone component present GENERAL CATEGORIZATION ? Negative for Intraepithelial Lesion or Malignan cy ? Document reviewed and electronically signed by: ? CINDA Ac(ASCP) ? Report Date: ??01/04/2004 16:20 End of Report Specimen Performing Organization Address City/State/ZIP Code Phon e Number [facility] [address] [place] [address] SERVICES [facility] [address] [place] [address] documented in this encounter Visit Diagnoses Not on filedocumented in this encounter
--- OUTSIDE RECORDS SUMMARY | 2022-03-17 02:33 | XMS_ITS | Encounter Summary ---
:1950 Author Organization [facility] Address [address] [place] [address] Care Team Providers Name Role Phone Unavailable Primary Care Provider Unavailable Encounter Details Date Type Department Care Team Description 07/17/2011 Results Only [facility] Agustin Meyer MD Laboratory Services - [address] [place] [address] [place] [phone] (Wo rk) Social History Tobacco Use Types Packs/Day Years Used Date Never Assessed Sex Assigned at Date Recorded Not on file documented as of this encounter Plan of Treatment Upcoming Encounters Date Type Specialty Care Team Description 04/07/2022 Telemedicine Rheumatology Good Arauz , CHEF KITCHEN MANAGER 130 [facility] [address] [place] [address] documented as of this encounter Procedures Procedure Name Priority Date/Time Associated Diagnosis Comme [facility] SURGICAL PATHOLOGY Routine 07/17/2011 0:00 EST Re sults for this procedure are i n the results section. documented in this encounter Results SURGICAL PATHOLOGY (07/17/2011 0:00 EST) Pathology Report: SURGICAL PATHOLOGY REPORT [facility] Reports generated via electronic interface contain sree ginal data; LAB however they are lacking the format of the original re port. Caution should be taken when reading/interpreting unfo rmatted reports. Name: ? NGUYEN HACKETT ? Accession #: ? [id number] ? : ? 1950 (Age: 61) ??F ? Collect Date: ? 07/17/2011 ? Location: ? [facility] ? Receive Date: ? 011 ? Provider: BEV MEYER MD Copy to: MYNOR LONGORIA MD ? Final Pathologic Diagnosis: ? Uterus and cervix, hysterectomy: 1. ?Cervix: ? - Hyperkeratosis. ? 2. ?? Endometrium: ?- Endometrial polyp, atrophic type. ?- Inactive endometrium. 3. ?? Myometrium: ?- Submucosal leiomyoma (0.4 cm in greatest di mension). 4. ?? Serosa: ?- No pathologic features. ?? Document reviewed and electronically signed by: SHIRA GUADARRAMA MD Report ??Date: 07/21/2011 16:36 By the signature above, the attending physician certif ies that he/she has personally conducted a gross and/or microscopic examin ation of the described specimens and rendered or confirmed the above diagnosi s. Specimen(s) Received: ? Uterus Clinical History: ? Uterogenital prolapse Gross Description: ? Received in formalin labelled Nguyen Hackett and uterus is the product of a simple hysterectomy which weighs 40 grams and measur es 8.2 cm fundus to cervix, 3.2 cm cornu to corn u, and 1.5 cm anterior to posterior. ??The specimen cannot be oriented into anterior and posterior halves. ??The ectocervix is deluna-white, smooth to wrinkled with a 0.6 cm, patent, slit-like os. ??The endocervical canal is grossly unremarkable. ??There ar e two marcum-pink, endometrial, polypoid structures measuring 0.4 x 0.3 x 0.2 cm and 0.7 x 0.3 x 0.2 cm. ??The endometrium is marcum-red, averaging 0.1 cm in thickness. ??The myometrium is marcum-pink and averages 0.7 cm in thickness. ??No discrete nodules are present. ??The adnexa is not present. ??[facility] sections are submitted as follows: BLOCK JIMENES A1,A2 ?Cervix A3,A4 ?Endomyometrium A5 ?Smaller endometrial lesion A6 ?Larger endometrial lesion (Aditi Chowdary)/[facility] End of Report Specimen Performing Organization Address City/State/ZIP Code Phon e Number [facility] [address] [place] [address] SERVICES [facility] [address] [place] [address] documented in this encounter Visit Diagnoses Not on filedocumented in this encounter
[2022-03-17 15:59] LABS: Abs Immature Grans 0.05 10^3/uL (0.0-0.06); Absolute Basophil Count 0.08 10^3/uL (0.0-0.2); Absolute Eosinophil Count 0.54 10^3/uL (0.0-0.7); Absolute Monocyte Count 1.35 10^3/uL (0.1-0.8); Basophils % 0.7; Eosinophils % 4.5; HCT 38.3 % (36.0-46.0); HGB 12.2 g/dL (11.2-15.7); Immature Grans % 0.4; Lymphocytes % 20.7; MCH 30.9 pg (27.0-33.0); MCHC 31.9 % (32.0-36.0); MCV 97 fL (80-95); MPV 10.3 fL (8.0-11.0); Monocytes % 11.2; Neutrophils % 62.5; Platelet Count 442 10^3/uL (130-400); RBC 3.95 10^6/uL (3.93-5.22); RDW 13.2 % (11.7-14.6); RDW-SD 47.9 fL; WBC 12.09 10^3/uL (4.4-10.8)
[2022-03-17 16:09] LABS: Anion Gap 6.9 mmol/L (3-11); BUN 39 mg/dL (7-18); C-Reactive Protein 0.45 mg/dL (0.0-0.3); CO2 27.1 mmol/L (21.0-32.0); CREATININE 1.4 mg/dL (0.55-1.02); Calcium 9.6 mg/dL (8.5-10.1); Chloride 99 mmol/L (98-107); Estimated GFR 36.86 (mL/min/1.73m2); Glucose 101 mg/dL (74-106); Potassium 3.9 mmol/L (3.5-5.1); Sodium 133 mmol/L (136-145)
[2022-03-17 16:11] LABS: Absolute Neutrophil Count 7.56 10^3/uL (1.2-6.7)
== END 2022-03-17 02:31 | disposition home or self-care (01) ==
LOC: LBO 02:30
PROVIDERS: PCP Nurse Practitioner Family; Visit Provider Nurse Practitioner Family
DX: L40.9 Psoriasis, unspecified (principal); M15.4 Erosive (osteo)arthritis; Z79.899 Other long term (current) drug therapy
CPT/HCPCS: 36415; 80048; 85025; 86140

== ENCOUNTER 2022-04-10 01:33 | Outpatient (CLI) | payer MEDICARE, SELFPAY ==
[2022-04-10 11:54] LABS: Abs Immature Grans 0.05 10^3/uL (0.0-0.06); Absolute Basophil Count 0.05 10^3/uL (0.0-0.2); Absolute Eosinophil Count 0.41 10^3/uL (0.0-0.7); Absolute Lymphocyte Count 2.09 10^3/uL (1.2-3.4); Absolute Monocyte Count 0.89 10^3/uL (0.1-0.8); Absolute Neutrophil Count 8.04 10^3/uL (1.2-6.7); Basophils % 0.4; Eosinophils % 3.6; HGB 12.3 g/dL (11.2-15.7); Immature Grans % 0.4; Lymphocytes % 18.1; MCH 31.2 pg (27.0-33.0); MCHC 32.4 % (32.0-36.0); MCV 96 fL (80-95); MPV 9.6 fL (8.0-11.0); Monocytes % 7.7; Neutrophils % 69.8; Platelet Count 384 10^3/uL (130-400); RBC 3.94 10^6/uL (3.93-5.22); RDW 13.7 % (11.7-14.6); RDW-SD 48.7 fL; WBC 11.52 10^3/uL (4.4-10.8)
[2022-04-10 12:17] LABS: ALT 23 U/L (14-59); AST 13 U/L (15-37); Albumin 3.8 g/dL (3.4-5.0); Alkaline Phosphatase 66 U/L (46-116); Anion Gap 7.6 mmol/L (3-11); BUN 24 mg/dL (7-18); Bilirubin, Total 0.3 mg/dL (0.2-1.0); C-Reactive Protein 0.67 mg/dL (0.0-0.3); CO2 28.4 mmol/L (21.0-32.0); CREATININE 1.2 mg/dL (0.55-1.02); Calcium 9.5 mg/dL (8.5-10.1); Chloride 103 mmol/L (98-107); Estimated GFR 43.91 (mL/min/1.73m2); Glucose 110 mg/dL (74-106); Potassium 4.6 mmol/L (3.5-5.1); Sodium 139 mmol/L (136-145)
== END 2022-04-10 01:34 | disposition home or self-care (01) ==
LOC: LBO 01:34
PROVIDERS: PCP Nurse Practitioner Family; Visit Provider Nurse Practitioner Family
DX: L40.9 Psoriasis, unspecified (principal); M15.4 Erosive (osteo)arthritis; Z79.899 Other long term (current) drug therapy
CPT/HCPCS: 36415; 80053; 85025; 86140

== ENCOUNTER 2022-07-04 15:27 | Outpatient (REF) | payer MEDICARE, SELFPAY ==
--- NOTE | 2022-07-04 15:00 | SKI_PTH ---
PATIENT: Phoebe Hackett LOC: [facility] U#:[id number] AGE/SX: 72/F ROOM: RE07/04/[address]: AMISH Yap : 1950 BED: DIS: 07/04/2022 SPEC #: [id number] RECD: 07/07/22 11:05 STATUS: PETER REJackie #: [id number] JOSEPH: 07/04/22 15:[address]: Tanner Osorio DEPT: Surgical Specimen RECD BY: Susan Arriaga ENTERED: 07/07/22 11:05 SP TYPE: KETURAH MARTINEZ DR: Hallie Starr Tissues: 1 - SKIN BIOPSY(SHAVE/PUNCH) Procedures: SKIN LEVEL 4 Comments: [id number]
== END 2022-07-04 15:28 | disposition home or self-care (01) ==
LOC: LBN 15:27
PROVIDERS: PCP Nurse Practitioner Family; Visit Provider Physician Assistant
DX: D49.2 Neoplasm of unspecified behavior of bone, soft tissue, and skin (principal)
CPT/HCPCS: 88305

== ENCOUNTER 2022-07-10 04:41 | Outpatient (CLI) | payer MEDICARE, SELFPAY ==
[2022-07-10 15:27] LABS: TSH (W/Ref FT4) 0.87 uIU/mL (0.36-3.74)
== END 2022-07-10 04:42 | disposition home or self-care (01) ==
PROVIDERS: Physician Assistant; PCP Nurse Practitioner Family; Visit Provider Nurse Practitioner Family
DX: R53.82 Chronic fatigue, unspecified (principal); E01.0 Iodine-deficiency related diffuse (endemic) goiter
CPT/HCPCS: 36415; 80053; 84443; 85025; 86140

== ENCOUNTER → 2022-08-08 00:53 | Outpatient (CLI) | payer MEDICARE, SELFPAY ==
--- NOTE | 2022-08-08 12:15 | DI.US_ITS ---
Exam(s) US THYROID EXAM: US THYROID CLINICAL HISTORY: THYROMEGALY, E01.0. TECHNIQUE: Ultrasound thyroid performed using standard protocol. COMPARISON: No exams were available for comparison FINDINGS: ISTHMUS: 2.4 mm RIGHT LOBE: Size: 3 x 1 x 0.9 cm Echogenicity: Normal. Vascularity: Normal. Nodules: None. LEFT LOBE: Size: 3.1 x 1 x 0.9 cm Echogenicity: Normal. Vascularity: Normal. Nodules: There is a 1.1 x 0.7 x 1.1 cm mixed cystic and solid isoechoic mass. It had smooth margins and a macrocalcification. The findings are consistent with a TI rads level 3 nodule. Due to its siz e, no follow-up or aspiration is recommended. OTHER FINDINGS: None. IMPRESSION: 1.1 x 0.7 x 1.1 cm left thyroid nodule. It is consistent with a TI rads level 3 nodule. Due to its size, no follow-up or aspiration is recommended. DATA REPOSITORY:
== END ==
PROVIDERS: PCP Nurse Practitioner Family; Visit Provider Physician Assistant
DX: E01.0 Iodine-deficiency related diffuse (endemic) goiter (principal)
CPT/HCPCS: 76536

== ENCOUNTER 2022-08-08 11:00 | Outpatient (REF) | payer MEDICARE, SELFPAY ==
--- NOTE | 2022-08-08 10:30 | SKI_PTH ---
PATIENT: Phoebe Hackett LOC: [facility] U#:[id number] AGE/SX: 72/F ROOM: RE08/08/[address]: AMISH Yap : 1950 BED: DIS: 08/08/2022 SPEC #: [id number] RECD: 08/08/22 13:58 STATUS: PETER REQ #: [id number] JOSEPH: 08/08/22 10:[address]: Tanner Osorio DEPT: Surgical Specimen RECD BY: Mary Fuentes ENTERED: 08/08/22 13:58 SP TYPE: KETURAH MARTINEZ DR: Hallie Starr Tissues: 1 - SKIN BIOPSY(SHAVE/PUNCH) Procedures: SKIN LEVEL 4 Comments: [id number]
== END 2022-08-08 11:01 | disposition home or self-care (01) ==
LOC: LBN 11:00
PROVIDERS: PCP Nurse Practitioner Family; Visit Provider Physician Assistant
DX: L57.0 Actinic keratosis (principal); L90.5 Scar conditions and fibrosis of skin
CPT/HCPCS: 88305

== ENCOUNTER 2022-10-27 02:44 | Outpatient (CLI) | payer MEDICARE, SELFPAY ==
[2022-10-27 15:27] LABS: Abs Immature Grans 0.06 10^3/uL (0.0-0.06); Absolute Neutrophil Count 9.34 10^3/uL (1.2-6.7); Basophils % 0.4; Eosinophils % 2.8; HCT 42.4 % (36.0-46.0); HGB 13.3 g/dL (11.2-15.7); Immature Grans % 0.4; Lymphocytes % 20.6; MCH 31.4 pg (27.0-33.0); MCHC 31.4 % (32.0-36.0); MCV 100 fL (80-95); MPV 9.3 fL (8.0-11.0); Monocytes % 7.7; Neutrophils % 68.1; Platelet Count 403 10^3/uL (130-400); RBC 4.23 10^6/uL (3.93-5.22); RDW 13.8 % (11.7-14.6); RDW-SD 50.4 fL; WBC 13.72 10^3/uL (4.4-10.8)
[2022-10-27 15:30] LABS: Absolute Basophil Count 0.05 10^3/uL (0.0-0.2); Absolute Eosinophil Count 0.38 10^3/uL (0.0-0.7); Absolute Lymphocyte Count 2.83 10^3/uL (1.2-3.4); Absolute Monocyte Count 1.06 10^3/uL (0.1-0.8)
[2022-10-27 15:54] LABS: ALT 18 U/L (14-59); AST 9 U/L (15-37); Albumin 4.1 g/dL (3.4-5.0); Alkaline Phosphatase 69 U/L (46-116); Anion Gap 6.7 mmol/L (3-11); BUN 27 mg/dL (7-18); Bilirubin, Total 0.1 mg/dL (0.2-1.0); C-Reactive Protein 0.38 mg/dL (0.0-0.3); CO2 31.3 mmol/L (21.0-32.0); CREATININE 1.2 mg/dL (0.55-1.02); Calcium 9.8 mg/dL (8.5-10.1); Chloride 101 mmol/L (98-107); Glucose 114 mg/dL (74-106); Potassium 4.1 mmol/L (3.5-5.1); Sodium 139 mmol/L (136-145); Total Protein 7.2 g/dL (6.4-8.2)
[2022-10-27 16:41] LABS: TSH (W/Ref FT4) 1.05 uIU/mL (0.36-3.74)
== END 2022-10-27 02:45 | disposition home or self-care (01) ==
LOC: LBO 02:44
PROVIDERS: Physician Assistant; PCP Nurse Practitioner Family; Visit Provider Nurse Practitioner Family
DX: R53.82 Chronic fatigue, unspecified (principal); L40.9 Psoriasis, unspecified; E01.0 Iodine-deficiency related diffuse (endemic) goiter; M15.4 Erosive (osteo)arthritis; Z79.899 Other long term (current) drug therapy
CPT/HCPCS: 36415; 80053; 84443; 85025; 86140

== ENCOUNTER 2022-11-10 18:56 | Outpatient (REF) | payer MEDICARE, SELFPAY ==
[2022-11-10 18:20] LABS: Bilirubin Negative (Negative); Blood Negative (Negative); Clarity Clear (Clear); Glucose Negative (Negative); Ketones Negative (Negative); Leukocyte Esterase Negative (Negative); Nitrite Negative (Negative); Urobilinogen 0.2 mg/dL (Up to 0.2); pH 7.5 (5-8)
== END 2022-11-10 18:57 | disposition home or self-care (01) ==
LOC: NCHCN 18:56
PROVIDERS: PCP Nurse Practitioner Family; Visit Provider Nurse Practitioner Family
DX: R35.0 Frequency of micturition (principal); N89.8 Other specified noninflammatory disorders of vagina
CPT/HCPCS: 87077; 81003; 87086; 87186; 87480; 87510; 87660

== ENCOUNTER 2023-01-14 03:29 | Outpatient (CLI) | payer MEDICARE, SELFPAY ==
[2023-01-14 11:50] LABS: Abs Immature Grans 0.02 10^3/uL (0.0-0.06); Absolute Basophil Count 0.05 10^3/uL (0.0-0.2); Absolute Eosinophil Count 0.29 10^3/uL (0.0-0.7); Absolute Lymphocyte Count 2.15 10^3/uL (1.2-3.4); Absolute Monocyte Count 0.57 10^3/uL (0.1-0.8); Basophils % 0.6; Eosinophils % 3.2; HCT 39.2 % (36.0-46.0); HGB 12.6 g/dL (11.2-15.7); Immature Grans % 0.2; Lymphocytes % 23.9; MCH 32.3 pg (27.0-33.0); MCHC 32.1 % (32.0-36.0); MCV 101 fL (80-95); Monocytes % 6.3; Neutrophils % 65.8; Platelet Count 394 10^3/uL (130-400); RDW 14.3 % (11.7-14.6); WBC 8.98 10^3/uL (4.4-10.8)
[2023-01-14 12:27] LABS: ALT 31 U/L (14-59); AST 26 U/L (15-37); Alkaline Phosphatase 102 U/L (46-116); BUN 22 mg/dL (7-18); Bilirubin, Total 0.3 mg/dL (0.2-1.0); C-Reactive Protein 0.58 mg/dL (0.0-0.3); Calcium 9.8 mg/dL (8.5-10.1); Chloride 101 mmol/L (98-107); Estimated GFR 59.12 (mL/min/1.73m2); Glucose 88 mg/dL (74-106); Sodium 135 mmol/L (136-145); Total Protein 7.1 g/dL (6.4-8.2)
== END 2023-01-14 03:30 | disposition home or self-care (01) ==
LOC: LBO 03:29
PROVIDERS: PCP Nurse Practitioner Family; Visit Provider Nurse Practitioner Family
DX: M15.4 Erosive (osteo)arthritis (principal); Z79.899 Other long term (current) drug therapy
CPT/HCPCS: 36415; 80053; 85025; 86140

== ENCOUNTER 2023-02-27 00:26 | Outpatient (CLI) | payer MEDICARE, SELFPAY ==
--- NOTE | 2023-02-27 12:00 | DI.MAMMO_ITS ---
Exam(s) MAMMO SCREENING EXAM: MAMMO SCREENING CLINICAL HISTORY: SCREENING, Z12.39. TECHNIQUE: Bilateral full field digital CC and MLO mammographic images were obtained with 3D tomosyn thesis and utilizing computer aided detection (CAD). COMPARISON: 2013 through 2021 FINDINGS: Masses/Architectural Distortion: None seen. Microcalcifications: No suspicious pleomorphic-type are seen. Coarse, benign calcifications again not ed in the posteromedial left breast. Vascular calcifications also seen in the left breast. Skin Thickening/Nipple Retraction: None. IMPRESSION: 1. No significant interval change with no specific features of malignancy noted. 2. Unless there is more urgent need, annual screening mammography is recommended, as per [place] [employer] guidelines. BI-RADS Category 2 - Benign Findings Breast Density - Category D - extremely dense Breast Density Category D: The mammogram demonstrates the patient's breast tissue is dense. Dense mdaiha ast tissue is very common and is not abnormal but dense breast tissue can make it harder to find canc er on a mammogram. Also, dense breast tissue may increase their breast cancer risk. This information about the result of the mammogram report was provided to the patient to raise their awareness. Use th is report when you speak with the patient about their risks for breast cancer, which includes their f amily history. At that time, you may recommend for more screening tests (Ultrasound or MRI) as they m ight be useful based on their risk. A negative radiographic report should not delay biopsy if a dominant or clinically suspicious mass is present. Up to ten percent of cancers are not identified on mammography. A negative report may reinforce clinical impression. Adenosis and dense breasts may obscure an underlying neoplasm. False positive reports average 6 to 10%.
== END 2023-02-27 00:46 ==
LOC: DI 00:26
PROVIDERS: PCP Nurse Practitioner Family; Visit Provider Nurse Practitioner Family
DX: Z12.31 Encounter for screening mammogram for malignant neoplasm of breast (principal)
CPT/HCPCS: 77063; 77067

== ENCOUNTER 2023-03-06 02:16 | Outpatient (CLI) | payer MEDICARE, SELFPAY ==
[2023-03-06 13:19] LABS: Abs Immature Grans 0.06 10^3/uL (0.0-0.06); Absolute Eosinophil Count 0.25 10^3/uL (0.0-0.7); Absolute Lymphocyte Count 2.14 10^3/uL (1.2-3.4); Absolute Neutrophil Count 10.72 10^3/uL (1.2-6.7); Basophils % 0.4; Eosinophils % 1.8; HCT 37.4 % (36.0-46.0); HGB 11.9 g/dL (11.2-15.7); Immature Grans % 0.4; Lymphocytes % 15.5; MCH 32.7 pg (27.0-33.0); MCHC 31.8 % (32.0-36.0); MCV 103 fL (80-95); MPV 9.2 fL (8.0-11.0); Monocytes % 4.3; Neutrophils % 77.6; Platelet Count 445 10^3/uL (130-400); RBC 3.64 10^6/uL (3.93-5.22); RDW 14.1 % (11.7-14.6); RDW-SD 53.1 fL; WBC 13.82 10^3/uL (4.4-10.8)
[2023-03-06 13:21] LABS: Absolute Basophil Count 0.06 10^3/uL (0.0-0.2); Absolute Monocyte Count 0.59 10^3/uL (0.1-0.8)
[2023-03-06 14:00] LABS: ALT 21 U/L (14-59); AST 12 U/L (15-37); Alkaline Phosphatase 72 U/L (46-116); Anion Gap 8.9 mmol/L (3-11); BUN 27 mg/dL (7-18); Bilirubin, Total 0.3 mg/dL (0.2-1.0); C-Reactive Protein 0.15 mg/dL (0.0-0.3); CO2 28.1 mmol/L (21.0-32.0); CREATININE 1.3 mg/dL (0.55-1.02); Calcium 9.4 mg/dL (8.5-10.1); Chloride 103 mmol/L (98-107); Estimated GFR 43.15 (mL/min/1.73m2); Glucose 121 mg/dL (74-106); Sodium 140 mmol/L (136-145); Total Protein 6.7 g/dL (6.4-8.2)
== END 2023-03-06 02:17 | disposition home or self-care (01) ==
LOC: LBO 02:16
PROVIDERS: PCP Nurse Practitioner Family; Visit Provider Nurse Practitioner Family
DX: M15.4 Erosive (osteo)arthritis (principal); Z79.899 Other long term (current) drug therapy
CPT/HCPCS: 36415; 80053; 85025; 86140

== ENCOUNTER 2023-06-08 05:02 | Outpatient (CLI) | payer MEDICARE, SELFPAY ==
[2023-06-08 08:40] LABS: Absolute Basophil Count 0.08 10^3/uL (0.0-0.2); Absolute Lymphocyte Count 2.48 10^3/uL (1.2-3.4); Basophils % 0.6; Eosinophils % 4.1; HCT 39.6 % (36.0-46.0); HGB 12.6 g/dL (11.2-15.7); Immature Grans % 0.7; MCH 33.1 pg (27.0-33.0); MCHC 31.8 % (32.0-36.0); MCV 104 fL (80-95); MPV 9.3 fL (8.0-11.0); Monocytes % 9.4; Neutrophils % 67.2; Platelet Count 444 10^3/uL (130-400); RBC 3.81 10^6/uL (3.93-5.22); RDW 14.2 % (11.7-14.6); RDW-SD 53.1 fL; WBC 13.78 10^3/uL (4.4-10.8)
[2023-06-08 08:43] LABS: Absolute Eosinophil Count 0.56 10^3/uL (0.0-0.7); Absolute Neutrophil Count 9.26 10^3/uL (1.2-6.7)
[2023-06-08 09:06] LABS: ALT 16 U/L (14-59); AST 16 U/L (15-37); Albumin 4.1 g/dL (3.4-5.0); Alkaline Phosphatase 74 U/L (46-116); Anion Gap 8.6 mmol/L (3-11); BUN 26 mg/dL (7-18); Bilirubin, Total 0.3 mg/dL (0.2-1.0); C-Reactive Protein 0.56 mg/dL (0.0-0.3); CO2 27.4 mmol/L (21.0-32.0); CREATININE 1.2 mg/dL (0.55-1.02); Calcium 10.4 mg/dL (8.5-10.1); Chloride 101 mmol/L (98-107); Estimated GFR 47.21 (mL/min/1.73m2); Glucose 93 mg/dL (74-106); Potassium 3.9 mmol/L (3.5-5.1); Sodium 137 mmol/L (136-145); Total Protein 7.5 g/dL (6.4-8.2)
== END 2023-06-08 05:03 | disposition home or self-care (01) ==
LOC: LBO 05:02
PROVIDERS: PCP Nurse Practitioner Family; Visit Provider Nurse Practitioner Family
DX: Z79.899 Other long term (current) drug therapy (principal); M15.4 Erosive (osteo)arthritis
CPT/HCPCS: 36415; 80053; 85025; 86140

== ENCOUNTER → 2023-07-08 00:55 | Outpatient (CLI) | payer MEDICARE, SELFPAY ==
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
== END ==
PROVIDERS: PCP Nurse Practitioner Family; Visit Provider Internal Medicine Rheumatology
DX: M15.4 Erosive (osteo)arthritis (principal)
CPT/HCPCS: 73120

== ENCOUNTER 2023-07-16 05:21 | Outpatient (CLI) | payer MEDICARE, SELFPAY ==
[2023-07-16 09:32] LABS: Abs Immature Grans 0.05 10^3/uL (0.0-0.06); Absolute Basophil Count 0.06 10^3/uL (0.0-0.2); Absolute Lymphocyte Count 1.88 10^3/uL (1.2-3.4); Absolute Monocyte Count 0.65 10^3/uL (0.1-0.8); Basophils % 0.5; Eosinophils % 5.2; HCT 36.3 % (36.0-46.0); HGB 11.7 g/dL (11.2-15.7); Immature Grans % 0.4; Lymphocytes % 15.4; MCH 33.1 pg (27.0-33.0); MCHC 32.2 % (32.0-36.0); MCV 103 fL (80-95); MPV 9.1 fL (8.0-11.0); Monocytes % 5.3; Neutrophils % 73.2; Platelet Count 408 10^3/uL (130-400); RBC 3.54 10^6/uL (3.93-5.22); RDW 13.3 % (11.7-14.6); WBC 12.21 10^3/uL (4.4-10.8)
[2023-07-16 09:33] LABS: Absolute Eosinophil Count 0.63 10^3/uL (0.0-0.7); Absolute Neutrophil Count 8.94 10^3/uL (1.2-6.7)
[2023-07-16 10:22] LABS: ALT 20 U/L (14-59); AST 16 U/L (15-37); Albumin 3.9 g/dL (3.4-5.0); Alkaline Phosphatase 59 U/L (46-116); BUN 25 mg/dL (7-18); Bilirubin, Total 0.3 mg/dL (0.2-1.0); C-Reactive Protein 0.77 mg/dL (0.0-0.3); CREATININE 1.2 mg/dL (0.55-1.02); Calcium 9.9 mg/dL (8.5-10.1); Chloride 103 mmol/L (98-107); Estimated GFR 47.21 (mL/min/1.73m2); Glucose 97 mg/dL (74-106); Potassium 4.5 mmol/L (3.5-5.1); Sodium 137 mmol/L (136-145); Total Protein 7.1 g/dL (6.4-8.2)
== END 2023-07-16 05:22 | disposition home or self-care (01) ==
PROVIDERS: Nurse Practitioner Family; PCP Nurse Practitioner Family; Visit Provider Internal Medicine Rheumatology
DX: Z79.899 Other long term (current) drug therapy (principal); M15.4 Erosive (osteo)arthritis
CPT/HCPCS: 36415; 80053; 85025; 86140

== ENCOUNTER 2023-10-12 04:19 | Outpatient (CLI) | payer MEDICARE, SELFPAY ==
[2023-10-12 08:13] LABS: Abs Immature Grans 0.03 10^3/uL (0.0-0.06); Absolute Basophil Count 0.06 10^3/uL (0.0-0.2); Absolute Eosinophil Count 0.46 10^3/uL (0.0-0.7); Absolute Lymphocyte Count 1.42 10^3/uL (1.2-3.4); Absolute Monocyte Count 0.84 10^3/uL (0.1-0.8); Absolute Neutrophil Count 7.02 10^3/uL (1.2-6.7); Basophils % 0.6; Eosinophils % 4.7; HCT 37.1 % (36.0-46.0); HGB 11.8 g/dL (11.2-15.7); Immature Grans % 0.3; Lymphocytes % 14.4; MCH 32.3 pg (27.0-33.0); MCHC 31.8 % (32.0-36.0); MCV 102 fL (80-95); MPV 9.6 fL (8.0-11.0); Monocytes % 8.5; Neutrophils % 71.5; Platelet Count 357 10^3/uL (130-400); RBC 3.65 10^6/uL (3.93-5.22); RDW 13.8 % (11.7-14.6); RDW-SD 50.8 fL; WBC 9.83 10^3/uL (4.4-10.8)
[2023-10-12 08:47] LABS: ALT 18 U/L (14-59); AST 12 U/L (15-37); Albumin 3.9 g/dL (3.4-5.0); Alkaline Phosphatase 65 U/L (46-116); Anion Gap 8.5 mmol/L (3-11); BUN 25 mg/dL (7-18); Bilirubin, Total 0.3 mg/dL (0.2-1.0); CO2 27.5 mmol/L (21.0-32.0); CREATININE 1.2 mg/dL (0.55-1.02); Calcium 10.3 mg/dL (8.5-10.1); Calculated LDL 50 mg/dL (<100); Chloride 104 mmol/L (98-107); Cholesterol 153 mg/dL (<200); Estimated GFR 47.21 (mL/min/1.73m2); Glucose 94 mg/dL (74-106); HDL Cholesterol 82 mg/dL (40-60); Potassium 4.9 mmol/L (3.5-5.1); Sodium 140 mmol/L (136-145); Triglyceride 105 mg/dL (<150)
== END 2023-10-12 04:20 | disposition home or self-care (01) ==
LOC: LBO 04:19
PROVIDERS: PCP Nurse Practitioner Family; Visit Provider Internal Medicine Rheumatology
DX: E78.5 Hyperlipidemia, unspecified (principal); Z79.899 Other long term (current) drug therapy; M15.4 Erosive (osteo)arthritis
CPT/HCPCS: 36415; 80053; 80061; 85025

== ENCOUNTER 2024-02-02 05:18 | Outpatient (CLI) | payer MEDICARE, SELFPAY ==
[2024-02-02 09:07] LABS: Abs Immature Grans 0.05 10^3/uL (0.0-0.06); Absolute Basophil Count 0.06 10^3/uL (0.0-0.2); Absolute Eosinophil Count 0.41 10^3/uL (0.0-0.7); Absolute Lymphocyte Count 1.68 10^3/uL (1.2-3.4); Absolute Monocyte Count 0.94 10^3/uL (0.1-0.8); Basophils % 0.5 %; Eosinophils % 3.4 %; HCT 37.3 % (36.0-46.0); HGB 11.9 g/dL (11.2-15.7); Immature Grans % 0.4 %; Lymphocytes % 14.1 %; MCH 33.1 pg (27.0-33.0); MCHC 31.9 % (32.0-36.0); MCV 104 fL (80-95); MPV 8.5 fL (8.0-11.0); Monocytes % 7.9 %; Neutrophils % 73.7 %; Platelet Count 372 10^3/uL (130-400); RDW 14.3 % (11.7-14.6); WBC 11.92 10^3/uL (4.4-10.8)
[2024-02-02 09:08] LABS: Absolute Neutrophil Count 8.79 10^3/uL (1.2-6.7)
[2024-02-02 09:42] LABS: ALT 28 U/L (14-59); AST 18 U/L (15-37); Alkaline Phosphatase 78 U/L (46-116); Anion Gap 6.4 mmol/L (3-11); BUN 24 mg/dL (7-18); Bilirubin, Total 0.3 mg/dL (0.2-1.0); C-Reactive Protein 1.06 mg/dL (<or=0.5); CO2 29.6 mmol/L (21.0-32.0); CREATININE 1.2 mg/dL (0.55-1.02); Calcium 9.8 mg/dL (8.5-10.1); Chloride 104 mmol/L (98-107); Estimated GFR 47.21 (mL/min/1.73m2); Glucose 113 mg/dL (74-106); Potassium 4.8 mmol/L (3.5-5.1); Sodium 140 mmol/L (136-145)
== END 2024-02-02 05:19 | disposition home or self-care (01) ==
LOC: LBO 05:19
PROVIDERS: Visit Provider Internal Medicine Rheumatology
DX: Z79.899 Other long term (current) drug therapy (principal)
CPT/HCPCS: 36415; 80053; 85025; 86140

== ENCOUNTER 2024-02-18 16:01 | Emergency (ER) | payer MEDICARE, SELFPAY ==
[2024-02-18 16:05] VITALS: BP 141/51; PULSE 103; RESP 18; TEMP 36.7; O2SAT 98
--- NOTE | 2024-02-18 16:15 | DI.CT_ITS ---
Exam(s) CT HEAD WO EXAM: CT HEAD WO CLINICAL HISTORY: headache post fall. TECHNIQUE: Imaging Protocol: Axial computed tomography images with coronal and sagittal reformatted images were created and reviewed COMPARISON: No exams were available for comparison FINDINGS: Ventricles and Extra axial spaces: Normal in size and morphology for the patient's age. Hemorrhage: None. Cerebral parenchyma: No evidence of acute infarct or mass. Midline shift: None. Brainstem/Cerebellum: Normal. Calvarium: Normal. Visualized Paranasal sinuses:Clear opacification of the sphenoid sinuses and the left posterior ethmo id sinus. Mastoids: Clear. Soft Tissues: Unremarkable. ORBITS: Unremarkable. PITUITARY: Not enlarged. IMPRESSION: Severe chronic sinusitis involving the sphenoid sinuses. No acute intracranial abnormality. RADIATION DOSE DELIVERED: 681.84mGy.cm Total DLP DATA REPOSITORY: All CT scans at this facility are submitted to the National Radiology Data Registry (NRDR) Dose Index Registry (DIR) with the [employer] (ACR). RADIATION OPTIMIZATION: All CT scans at this facility use at least one of these dose optimization te chniques: automated exposure control; mA and/or kV adjustment per patient size (includes targeted exa ms where dose is matched to clinical indication); or iterative reconstruction.
[2024-02-18 16:19] VITALS: BP 141/51; PULSE 103; RESP 18; TEMP 36.7; O2SAT 98
[2024-02-18] MEDS: Normal Saline 500 ML IV (16:40)
--- NOTE | 2024-02-18 16:43 | W.ED.GENAD ---
Discharge Plan Disposition Patient Disposition: Home Condition: Stable Discharge Details Clinical Impression: Sinusitis, Head injury Primary Care Provider: Unknown,Unknown ED Provider: Mary Mathews Home Meds and New Rx's Prescriptions: New clindamycin HCl 150 mg capsule 450 mg PO TID Qty: 18 0RF Continued lisinopril 10 mg tablet 10 mg PO DAILY acetaminophen [Tylenol Extra Strength] 500 mg tablet 500 mg PO QID PRN triamterene-hydrochlorothiazid 1 EACH tablet 1 tab-cap PO DAILY meclizine 12.5 MG tablet 25 mg PO PRN colchicine 0.6 mg tablet 0.6 mg PO DAILY Discharge Instructions Instructions: Sinusitis, Adult ED Additional Instructions: Take the antibiotic as prescribed Yogurt daily while on antibiotics Continue on your Tylenol, do not exceed 3 g daily Follow-up with your primary care physician in 1 week for reassessment, should you continue to have persistent pain you may need ENT referral Cannot completely exclude concussion from your fall, I do recommend following up in the outpatient setting to be sure your symptoms are improving Discharge Data Discharge Date/Time-TO BE ENTERED AT DEPARTURE: 02/18/24 18:02 HPI General Date/Time Provider Initiated Documentation: 02/18/24 16:14. HPI Narrative: This 73-year-old female presents with report of fall approximately 1 month prior to arrival with persistent intermittent headaches and posterior or retro-orbital left sided pain. States that she typically takes about 3 g of Tylenol throughout the day and that this resolves her headache but when it wears off at night her pain has returned. Denies any changes in vision. Denies history of coagulopathy. Denies any loss of consciousness associated with the event. Denies any neck pain or strength or sensation changes to extremities. Denies any dizziness or weakness. Has some mild tenderness in the left temporal region per patient. History of headaches remotely but has not had them for years per patient. Denies fever. Denies tick bites. Related Data Home Medications Medication Instructions Recorded Confirmed triamterene 37.5 1 tab-cap PO DAILY 02/16/14 02/18/24 mg-hydrochlorothiazide 25 mg tablet meclizine 12.5 mg tablet 25 mg PO PRN 01/19/17 02/18/24 lisinopril 10 mg tablet 10 mg PO DAILY 12/25/20 02/18/24 acetaminophen 500 mg tablet 500 mg PO QID PRN 09/30/23 02/18/24 (Tylenol Extra Strength) clindamycin HCl 150 mg capsule 450 mg (3 x 150 mg) PO TID #18 caps 02/18/24 colchicine 0.6 mg tablet 0.6 mg PO DAILY 02/18/24 02/18/24 Previous Rx's Medication Instructions Recorded clindamycin HCl 150 mg capsule 450 mg (3 x 150 mg) PO TID #18 caps 02/18/24 Allergies Allergy/AdvReac Type Severity Reaction Status Date / Time codeine AdvReac Mild Other (See Unverified 02/18/24 16:10 Comment) General Stated Complaint: EyeProblem ANÍBAL: 3 Exam Narrative Exam Narrative: Alert, oriented, well-appearing 73-year-old female pupils equal round reactive to light and accommodation, extraocular muscles intact, Shant-Pen pressure 17.5 and left eye and 16 and right eye, no proptosis, mild tenderness to palpation over temporal, no visible sign of trauma, no respiratory distress, distal pulses intact, no abdominal tenderness or visible evidence of trauma, GCS 15, alert and oriented x 4, no evidence of injury to extremities well-visualized, ambulatory steady gait Course Vital Signs Vital signs: Vital Signs Temperature 36.7 C 02/18/24 16:05 Pulse 103 H 02/18/24 16:05 Respiratory Rate 18 02/18/24 16:05 Blood Pressure 141/51 H 02/18/24 16:05 Pulse Oximetry 98 02/18/24 16:05 Temperature 36.7 C 02/18/24 16:19 Temperature Source Temporal Artery Scan 02/18/24 16:19 Pulse 103 H 02/18/24 16:19 Respiratory Rate 18 02/18/24 16:19 Respiratory Effort Normal, Non-Labored 02/18/24 16:09 Blood Pressure 141/51 H 02/18/24 16:19 Blood Pressure Position Sitting 02/18/24 16:19 Pulse Oximetry 98 02/18/24 16:19 Oxygen Delivery Method Room Air 02/18/24 16:19 Oxygen Flow Rate 0 02/18/24 16:19 Pain Level 1 02/18/24 16:19 Medical Decision Making 73-year-old female with history of head injury 1 month prior to arrival with persistent headaches for the past month. CT was ordered for further evaluation as patient's not been evaluated since the fall. Low suspicion clinically for concussion although this is certainly in the differential. Patient has a negative sed rate and I suspect patient's pain overlying her jainism secondary to this being the site of the fall initially. Of note I did discuss the CT findings with Dr. Jackson states that patient has significant chronic sphenoid sinusitis and I will treat her with clindamycin for 7 days as recommended. She did I will then will be referred back to her primary care physician for possible ENT referral as needed. This may or may not be the cause of her pain but as I do not have an obvious additional source this will be initial intervention. Labs do not show evidence of significant acute abnormality. Patient is ambulatory with steady gait with a nonfocal otherwise neurological exam. No meningismus. Return precautions reviewed and patient expressed understanding. Quality:[facility] Health Related Social Needs: No Data to Display [facility] All Active Problems (Updated 02/18/24 @ 17:52 by AMISH Bailey) Head injury (Acute) Sinusitis (Acute) Impacted cerumen of both ears (Acute) Wears hearing aid in both ears (Acute) Sensorineural hearing loss (Acute) Nasal turbinate hypertrophy (Acute) S/P anterior colporrhaphy (Acute) 07/17/2011. Along with posterior colporrhaphy at time of vaginal hysterectomy. Screening for colon cancer (Acute) 2015. [facility]. Colonoscopy: Unable to visualize past sigmoid 2016. [facility] [place]. Colonography. Suboptimal study. Non-diagnostic. 2020. Patient declines invasive colorectal cancer screening Overactive bladder (Acute) Actinic keratosis (Acute) Sensorineural hearing loss of both ears (Acute) Medical History (Updated 02/18/24 @ 17:52 by AMISH Bailey) Meniere's disease HTN (hypertension) Osteoarthritis Surgical History (Updated 12/26/20 @ 18:11 by Shayla Nye MD) Total replacement of hip (01/02/14) R Colonoscopy - IV Sedation (08/06/16) Inadequate study unable to advance camera. 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
[2024-02-18 16:44] LABS: Abs Immature Grans 0.03 10^3/uL (0.0-0.06); Absolute Basophil Count 0.04 10^3/uL (0.0-0.2); Absolute Eosinophil Count 0.44 10^3/uL (0.0-0.7); Absolute Lymphocyte Count 2.13 10^3/uL (1.2-3.4); Absolute Monocyte Count 1.01 10^3/uL (0.1-0.8); Absolute Neutrophil Count 6.97 10^3/uL (1.2-6.7); Basophils % 0.4 %; Eosinophils % 4.1 %; HCT 37.1 % (36.0-46.0); HGB 11.8 g/dL (11.2-15.7); Immature Grans % 0.3 %; Lymphocytes % 20.1 %; MCH 32.8 pg (27.0-33.0); MCHC 31.8 % (32.0-36.0); MCV 103 fL (80-95); MPV 8.7 fL (8.0-11.0); Monocytes % 9.5 %; Neutrophils % 65.6 %; Platelet Count 397 10^3/uL (130-400); RDW-SD 53.4 fL; WBC 10.62 10^3/uL (4.4-10.8)
[2024-02-18 16:47] LABS: ESR 24 mm/hr (0-30)
[2024-02-18 16:58] LABS: ALT 17 U/L (14-59); AST 12 U/L (15-37); Albumin 4.1 g/dL (3.4-5.0); Alkaline Phosphatase 79 U/L (46-116); BUN 25 mg/dL (7-18); Bilirubin, Total 0.18 mg/dL (0.2-1.0); CREATININE 1.4 mg/dL (0.55-1.02); Calcium 9.6 mg/dL (8.5-10.1); Chloride 100 mmol/L (98-107); Estimated GFR 39.23 (mL/min/1.73m2); Glucose 148 mg/dL (74-106); Potassium 4.6 mmol/L (3.5-5.1); Sodium 136 mmol/L (136-145); Total Protein 7.2 g/dL (6.4-8.2)
[2024-02-18] MEDS: Clindamycin 150 MG CAP, 12 CAPS/BTL 450 MG PO (17:59)
== END 2024-02-18 18:02 | disposition home or self-care (01) ==
PROVIDERS: Emergency Provider Physician Assistant
DX: R51.9 Headache, unspecified (principal); H57.12 Ocular pain, left eye; J32.3 Chronic sphenoidal sinusitis; I10 Essential (primary) hypertension; Z91.81 History of falling
CPT/HCPCS: 80053; 85652; 96360; 99284; 70450; 85025

== ENCOUNTER → 2024-03-23 01:17 | Outpatient (CLI) | payer MEDICARE, SELFPAY ==
--- NOTE | 2024-03-23 | DI.MAMMO_ITS ---
Exam(s) MAMMO SCREENING EXAM: MAMMO SCREENING CLINICAL HISTORY: SCREENING, Z12.31 TECHNIQUE: Bilateral full field digital CC and MLO mammographic images were obtained with 3D tomosyn thesis and utilizing computer aided detection (CAD). COMPARISON: Available for comparison. FINDINGS: Masses/Architectural Distortion: None seen. Microcalcifications: No suspicious pleomorphic-type are seen. Skin Thickening/Nipple Retraction: None. IMPRESSION: 1. No significant interval change with no specific features of malignancy noted. 2. Unless there is more urgent need, screening mammography is recommended, as per [place] [employer] guidelines. BI-RADS Category 1 - Negative Breast Density - Category D - Extremely dense Breast density category C or D implies that the patient has dense breast tissue. Dense breast tissue is very common and is not abnormal but dense breast tissue can make it harder to find cancer on a ma mmogram. Also, dense breast tissue may increase their breast cancer risk. This information about the result of the mammogram report was provided to the patient to raise their awareness. Use this report when you speak with the patient about their risks for breast cancer, which includes their family hist ory. At that time, you may recommend for more screening tests (Ultrasound or MRI) as they might be us eful based on their risk. A negative radiographic report should not delay biopsy if a dominant or clinically suspicious mass is present. Up to ten percent of cancers are not identified on mammography. A negative report may reinforce clinical impression. Adenosis and dense breasts may obscure an underlying neoplasm. False positive reports average 6 to 10%. Patient will receive a letter notifying them of these results.
== END ==
PROVIDERS: Visit Provider Nurse Practitioner Family
DX: Z12.31 Encounter for screening mammogram for malignant neoplasm of breast (principal); R92.343 Mammographic extreme density, bilateral breasts
CPT/HCPCS: 77063; 77067

== ENCOUNTER 2024-05-20 01:29 | Outpatient (CLI) | payer MEDICARE, SELFPAY ==
[2024-05-20 10:11] LABS: Abs Immature Grans 0.03 10^3/uL (0.0-0.06); Absolute Basophil Count 0.07 10^3/uL (0.0-0.2); Absolute Eosinophil Count 0.42 10^3/uL (0.0-0.7); Absolute Lymphocyte Count 2.12 10^3/uL (1.2-3.4); Absolute Monocyte Count 0.75 10^3/uL (0.1-0.8); Absolute Neutrophil Count 7.03 10^3/uL (1.2-6.7); Basophils % 0.7 %; HCT 39.1 % (36.0-46.0); HGB 12.3 g/dL (11.2-15.7); Immature Grans % 0.3 %; Lymphocytes % 20.3 %; MCH 32.6 pg (27.0-33.0); MCHC 31.5 % (32.0-36.0); MCV 104 fL (80-95); Monocytes % 7.2 %; Neutrophils % 67.5 %; Platelet Count 354 10^3/uL (130-400); RBC 3.77 10^6/uL (3.93-5.22); RDW 12.7 % (11.7-14.6); RDW-SD 48.6 fL; WBC 10.42 10^3/uL (4.4-10.8)
[2024-05-20 10:38] LABS: ALT 18 U/L (14-59); AST 16 U/L (15-37); Albumin 3.8 g/dL (3.4-5.0); Alkaline Phosphatase 74 U/L (46-116); BUN 27 mg/dL (7-18); Bilirubin, Total 0.29 mg/dL (0.2-1.0); CREATININE 1.2 mg/dL (0.55-1.02); Calcium 9.6 mg/dL (8.5-10.1); Chloride 104 mmol/L (98-107); Estimated GFR 46.91 (mL/min/1.73m2); Glucose 98 mg/dL (74-106); Potassium 5.2 mmol/L (3.5-5.1); Sodium 138 mmol/L (136-145); Total Protein 7.3 g/dL (6.4-8.2)
== END 2024-05-20 01:30 | disposition home or self-care (01) ==
LOC: LBO 01:29
PROVIDERS: PCP Nurse Practitioner Family; Visit Provider Internal Medicine Rheumatology
DX: Z79.899 Other long term (current) drug therapy (principal); M13.80 Other specified arthritis, unspecified site
CPT/HCPCS: 36415; 80053; 85025

== ENCOUNTER 2024-08-19 01:05 | Outpatient (CLI) | payer MEDICARE, SELFPAY ==
[2024-08-19 14:01] LABS: Abs Immature Grans 0.04 10^3/uL (0.0-0.06); Absolute Basophil Count 0.07 10^3/uL (0.0-0.2); Absolute Lymphocyte Count 2.18 10^3/uL (1.2-3.4); Absolute Monocyte Count 0.62 10^3/uL (0.1-0.8); Absolute Neutrophil Count 6.95 10^3/uL (1.2-6.7); Basophils % 0.7 %; Eosinophils % 4.8 %; HCT 38.3 % (36.0-46.0); HGB 12.1 g/dL (11.2-15.7); Immature Grans % 0.4 %; MCH 32.4 pg (27.0-33.0); MCHC 31.6 % (32.0-36.0); MCV 103 fL (80-95); MPV 9.4 fL (8.0-11.0); Neutrophils % 67.1 %; Platelet Count 393 10^3/uL (130-400); RBC 3.73 10^6/uL (3.93-5.22); RDW 12.6 % (11.7-14.6); RDW-SD 47.3 fL; WBC 10.36 10^3/uL (4.4-10.8)
[2024-08-19 14:23] LABS: ALT 14 U/L (14-59); AST 9 U/L (15-37); Albumin 3.8 g/dL (3.4-5.0); Alkaline Phosphatase 91 U/L (46-116); BUN 26 mg/dL (7-18); Bilirubin, Total 0.13 mg/dL (0.2-1.0); CREATININE 1.3 mg/dL (0.55-1.02); Calcium 9.3 mg/dL (8.5-10.1); Chloride 107 mmol/L (98-107); Estimated GFR 42.62 (mL/min/1.73m2); Glucose 119 mg/dL (74-106); Sodium 141 mmol/L (136-145); Total Protein 6.7 g/dL (6.4-8.2)
== END 2024-08-19 01:06 | disposition home or self-care (01) ==
LOC: LBO 01:05
PROVIDERS: PCP Nurse Practitioner Family; Visit Provider Internal Medicine Rheumatology
DX: Z79.1 Long term (current) use of non-steroidal anti-inflammatories (NSAID) (principal); Z51.81 Encounter for therapeutic drug level monitoring
CPT/HCPCS: 36415; 80053; 85025

== ENCOUNTER 2024-10-27 02:02 | Outpatient (CLI) | payer MEDICARE, SELFPAY ==
--- NOTE | 2024-10-27 | DI.DEXA_ITS ---
Exam(s) XR DEXA BONE DENSITY W/WO SHARIF EXAM: XR DEXA BONE DENSITY W/WO SHARIF CLINICAL HISTORY: SCREENING FOR OSTEOPOROSIS, M85.88 OTHER SPECIFIED DISORDERS BONE DENSITY TECHNIQUE: Hologic Horizon C densitometer analysis of the lumbar spine and left forearm. Lateral s urvey image of the thoracic and lumbar spine. Analysis of the hips was not performed due to bilatera l hip prostheses. COMPARISON: No exams were available for comparison FINDINGS: Lateral view of the thoracic and lumbar spine shows no evidence of compression fractures. Bone mineral density measurements of the lumbar spine correspond to a total T-score of 2.1, in the normal range. Theleft forearm bone mineral density measurements correspond to a T-score of the distal 3rd of -0.7, in the normal range.. IMPRESSION: Normal bone mineral density.
== END 2024-10-27 02:22 ==
LOC: DI 02:02
PROVIDERS: PCP Nurse Practitioner Family; Visit Provider Nurse Practitioner Family
DX: M85.89 Other specified disorders of bone density and structure, multiple sites (principal)
CPT/HCPCS: 77080

== ENCOUNTER 2024-12-06 02:21 | Outpatient (CLI) | payer MEDICARE, SELFPAY ==
[2024-12-06 08:46] LABS: Abs Immature Grans 0.04 10^3/uL (0.0-0.06); Absolute Basophil Count 0.05 10^3/uL (0.0-0.2); Absolute Eosinophil Count 0.58 10^3/uL (0.0-0.7); Absolute Lymphocyte Count 2.34 10^3/uL (1.2-3.4); Absolute Monocyte Count 0.79 10^3/uL (0.1-0.8); Absolute Neutrophil Count 6.93 10^3/uL (1.2-6.7); Basophils % 0.5 %; Eosinophils % 5.4 %; HCT 38.1 % (36.0-46.0); HGB 12.3 g/dL (11.2-15.7); Immature Grans % 0.4 %; Lymphocytes % 21.8 %; MCH 31.6 pg (27.0-33.0); MCHC 32.3 % (32.0-36.0); MCV 98 fL (80-95); MPV 9.5 fL (8.0-11.0); Monocytes % 7.4 %; Neutrophils % 64.5 %; Platelet Count 389 10^3/uL (130-400); RBC 3.89 10^6/uL (3.93-5.22); RDW 13.3 % (11.7-14.6); RDW-SD 47.7 fL; WBC 10.73 10^3/uL (4.4-10.8)
[2024-12-06 09:41] LABS: ALT 19 U/L (14-59); AST 15 U/L (15-37); Albumin 3.7 g/dL (3.4-5.0); Alkaline Phosphatase 83 U/L (46-116); Anion Gap 8.8 mmol/L (3-11); BUN 26 mg/dL (7-18); Bilirubin, Total 0.2 mg/dL (0.2-1.0); CO2 27.2 mmol/L (21.0-32.0); CREATININE 1.2 mg/dL (0.55-1.02); Calcium 9.9 mg/dL (8.5-10.1); Chloride 107 mmol/L (98-107); Estimated GFR 46.91 (mL/min/1.73m2); Glucose 77 mg/dL (74-106); Potassium 5.4 mmol/L (3.5-5.1); Sodium 143 mmol/L (136-145); Total Protein 6.8 g/dL (6.4-8.2)
== END 2024-12-06 02:22 | disposition home or self-care (01) ==
LOC: LBO 02:21
PROVIDERS: PCP Nurse Practitioner Family; Visit Provider Internal Medicine Rheumatology
DX: Z51.81 Encounter for therapeutic drug level monitoring (principal); Z79.1 Long term (current) use of non-steroidal anti-inflammatories (NSAID)
CPT/HCPCS: 36415; 80053; 85025

== ENCOUNTER 2025-05-04 11:42 | Outpatient (CLI) | payer MEDICARE, SELFPAY ==
[2025-05-04 09:53] LABS: Abs Immature Grans 0.04 10^3/uL (0.0-0.06); HCT 37.7 % (36.0-46.0); HGB 11.9 g/dL (11.2-15.7); Immature Grans % 0.3 %; MCH 30.7 pg (27.0-33.0); MCHC 31.6 % (32.0-36.0); MCV 97 fL (80-95); MPV 9.6 fL (8.0-11.0); Platelet Count 436 10^3/uL (130-400); RBC 3.87 10^6/uL (3.93-5.22); RDW 13.6 % (11.7-14.6); RDW-SD 48.7 fL; WBC 11.92 10^3/uL (4.4-10.8)
[2025-05-04 10:23] LABS: ALT 18 U/L (14-59); AST 10 U/L (15-37); Albumin 4.0 g/dL (3.4-5.0); Alkaline Phosphatase 85 U/L (46-116); Anion Gap 8.4 mmol/L (3-11); BUN 25 mg/dL (7-18); Bilirubin, Total 0.3 mg/dL (0.2-1.0); CO2 26.6 mmol/L (21.0-32.0); Calcium 9.7 mg/dL (8.5-10.1); Chloride 105 mmol/L (98-107); Estimated GFR 58.02 (mL/min/1.73m2); Glucose 98 mg/dL (74-106); Potassium 5.1 mmol/L (3.5-5.1); Sodium 140 mmol/L (136-145); Total Protein 7.2 g/dL (6.4-8.2)
== END 2025-05-04 11:43 | disposition home or self-care (01) ==
LOC: LBO 11:43
PROVIDERS: Visit Provider Internal Medicine Rheumatology
DX: Z51.81 Encounter for therapeutic drug level monitoring (principal)
CPT/HCPCS: 36415; 80053; 85025

== ENCOUNTER 2025-05-19 02:08 | Outpatient (CLI) | payer MEDICARE, SELFPAY ==
--- NOTE | 2025-05-19 08:24 | DI.MAMMO_ITS ---
Exam(s) MAMMO SCREENING EXAM: MAMMO SCREENING CLINICAL HISTORY: SCREENING MAMMO Z12.31 TECHNIQUE: Bilateral full field digital CC and MLO mammographic images were obtained with 3D tomosynthesis and utilizing computer aided detection (CAD). COMPARISON: Comparison is made with prior examinations. FINDINGS: Masses/Architectural Distortion: No suspicious masses or areas of architectural distortion are present. Microcalcifications: No suspicious pleomorphic-type are seen. Skin Thickening/Nipple Retraction: None. IMPRESSION: 1. No significant interval change with no specific features of malignancy noted. 2. Unless there is more urgent need, screening mammography is recommended, as per [place] [employer] guidelines. BI-RADS Category 1 - Negative Breast Density - Category D - The breast are extremely dense, which lowers the sensitivity of the mammography. Breast density Category C or D implies that the patient has dense breast tissue. Dense breast tissue can make it harder to find cancer on a mammogram. Dense breast tissue is also associated with an increased risk of breast cancer. This information about the result of the mammogram report was provided to the patient to raise their awareness. Use this report when you speak with the patient about their risks for breast cancer, which includes their family history. At that time, you may recommend additional screening tests (Ultrasound or MRI) as these tests may add significant information. A negative radiographic report should not delay biopsy if a dominant or clinically suspicious mass is present. Up to ten percent of cancers are not identified on mammography. A negative report may reinforce clinical impression. Adenosis and dense breasts may obscure an underlying neoplasm. False positive reports average 6 to 10%. Patient will receive a letter notifying them of these results.
== END 2025-05-19 02:28 ==
DX: Z12.31 Encounter for screening mammogram for malignant neoplasm of breast (principal)
CPT/HCPCS: 77063; 77067

== ENCOUNTER 2025-07-24 13:39 | Outpatient (REF) | payer MEDICARE, SELFPAY ==
[2025-07-24 17:10] LABS: ALT 15 U/L (10-49); AST 21 U/L (<34); Albumin 4.3 g/dL (3.4-5.0); Alkaline Phosphatase 88 U/L (46-116); Anion Gap 9.6 mmol/L (3-11); BUN 27 mg/dL (9-23); Bilirubin, Total 0.20 mg/dL (0.2-1.2); CO2 25.4 mmol/L (20.0-31.0); Calcium 10.3 mg/dL (8.3-10.6); Chloride 106 mmol/L (98-107); Glucose 113 mg/dL (74-106); Potassium 5.4 mmol/L (3.5-5.1); Sodium 141 mmol/L (136-145); Total Protein 6.4 g/dL (5.7-8.2)
== END 2025-07-24 13:40 | disposition home or self-care (01) ==
LOC: NCHCN 13:39
DX: I10 Essential (primary) hypertension (principal)
CPT/HCPCS: 80053

== ENCOUNTER 2025-08-06 15:52 | Emergency (ER) | payer MEDICARE, SELFPAY ==
[2025-08-06] VITALS (18 sets, daily range): BP systolic 160–176; BP diastolic 59–74; PULSE 85–103; RESP 13–23; TEMP 36.6; O2SAT 90–100
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
[2025-08-06] MEDS: Omnipaque 350 MG/ML 100 ML BTL IJ (16:07)
[2025-08-06] MEDS: Normal Saline - Diluent 50 ML VIAL IJ (16:07)
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
[2025-08-06] MEDS: Normal Saline Flush 10 ML SYR IVP (16:11)
[2025-08-06 16:21] LABS: Abs Immature Grans 0.25 10^3/uL (0.0-0.06); HCT 39.0 % (36.0-46.0); HGB 12.3 g/dL (11.2-15.7); Immature Grans % 2.0 %; MCH 30.7 pg (27.0-33.0); MCHC 31.5 % (32.0-36.0); MCV 97 fL (80-95); MPV 10.1 fL (8.0-11.0); Platelet Count 399 10^3/uL (130-400); RBC 4.01 10^6/uL (3.93-5.22); RDW 13.4 % (11.7-14.6); RDW-SD 48.3 fL; WBC 12.35 10^3/uL (4.4-10.8)
[2025-08-06 16:29] LABS: INR 1.0 (0.9-1.1); Prothrombin Time 9.7 sec (9.1-11.1)
[2025-08-06 16:36] LABS: Lipase 42 U/L (<53)
[2025-08-06 16:38] LABS: ALT 18 U/L (10-49); AST 28 U/L (<34); Albumin 4.5 g/dL (3.2-5.0); Alkaline Phosphatase 85 U/L (46-116); Anion Gap 8.6 mmol/L (3-11); BUN 25 mg/dL (9-23); Bilirubin, Total 0.20 mg/dL (0.2-1.2); CO2 24.4 mmol/L (20.0-31.0); Calcium 9.6 mg/dL (8.3-10.6); Chloride 105 mmol/L (98-107); Glucose 89 mg/dL (74-106); Potassium 5.6 mmol/L (3.5-5.1); Sodium 138 mmol/L (136-145); Total Protein 6.9 g/dL (5.7-8.2); Troponin I 19 ng/L (<35)
--- NOTE | 2025-08-06 16:45 | RT.EKG_ITS ---
APPROVED REPORT Exam: Resting ECG Reason for Exam: HyperK Patient Location: E HR:89 bpm ECG Measurements Heart Rate 89 AXIS [place] 147 P 49 QRSd 84 QRS 52 QT 358 T 61 QTc 435 Conclusion Sinus rhythm, rate 89 No interval abnormalities No STEMI No priors available for comparison
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
[2025-08-06] MEDS: Lidocaine 5% Patch 1 PATCH TP (17:35)
[2025-08-06] MEDS: Ondansetron 4 MG/2 ML VIAL IVP ×2 (17:35→18:44)
[2025-08-06 17:45] LABS: Troponin I 73 ng/L (<35)
[2025-08-06] MEDS: Acetaminophen 500 MG TAB 1000 MG PO (18:23)
[2025-08-06] MEDS: LORazepam 2 MG/ML VIAL 0.5 MG IVP (19:01)
== END 2025-08-06 19:02 | disposition short-term general hospital (02) ==
PROVIDERS: Emergency Provider Emergency Medicine
DX: S22.20XA Unspecified fracture of sternum, initial encounter for closed fracture (principal); V48.0XXA Car driver injured in noncollision transport accident in nontraffic accident, initial encounter; D72.829 Elevated white blood cell count, unspecified
CPT/HCPCS: 99285 ×2; 74177; 80053; 83690; 93005; 70450; 71260; 72125; 73590; 80320; 84484; 85025; 85610; 93010; J2060; J2405; J3490

== ENCOUNTER 2025-08-11 12:31 | Outpatient (REF) | payer MEDICARE, SELFPAY ==
[2025-08-11 16:01] LABS: Anion Gap 10.1 mmol/L (3-11); BUN 32 mg/dL (9-23); CO2 26.9 mmol/L (20.0-31.0); Calcium 10.4 mg/dL (8.3-10.6); Chloride 101 mmol/L (98-107); Glucose 93 mg/dL (74-106); Potassium 4.0 mmol/L (3.5-5.1); Sodium 138 mmol/L (136-145)
== END 2025-08-11 12:32 | disposition home or self-care (01) ==
LOC: NCHCN 12:31
DX: E87.5 Hyperkalemia (principal)
CPT/HCPCS: 80048